=== PATIENT | female | born 1970 | race Caucasian/White ===

== ENCOUNTER 2017-06-16 17:41 | Emergency (ER) | payer OTHER, BC ==
[~2017-06-16] VITALS: Ht 167.6 cm; Wt 136.5 kg
[~2017-06-16 17:41] MED LIST: CYCL5TAB PO; HYDR-2758 PO
--- NOTE | 2017-06-16 17:52 | PHYS DOC ---
Past Medical History Past Medical History: Diabetes-Type II Additional Past Medical Histor: LONG QT SYNDROME Past Surgical History: Cholecystectomy, , Hysterectomy Additional Past Surgical Histo: D&C'S, PACEMAKER WITH DEFIB Alcohol Use: Rarely Drug Use: None Adult General Chief Complaint Chief Complaint: OTHER COMPLAINTS HPI HPI Patient is a 47 year old female who presents with substernal pressure that radiates her back. She states last night right before bed she took doxycycline for sinus infection minute 3 AM she woke up with this pain in her epigastric area that radiates her back. She states is only hurts when she swallows. She states it hurts so bad that she could hardly eat today. She states a glass water makes it hurt. She states she's also has a history of hypertension, prediabetes and prolonged QT syndrome with an ICD. Review of Systems Review of Systems Constitutional: Denies fever or chills [] Eyes: Denies change in visual acuity, redness, or eye pain [] HENT: Denies nasal congestion or sore throat [] Respiratory: Denies cough or shortness of breath [] Cardiovascular: No additional information not addressed in HPI [] GI: Denies abdominal pain, nausea, vomiting, bloody stools or diarrhea [] : Denies dysuria or hematuria [] Musculoskeletal: Denies back pain or joint pain [] Integument: Denies rash or skin lesions [] Neurologic: Denies headache, focal weakness or sensory changes [] Endocrine: Denies polyuria or polydipsia [] All other systems were reviewed and found to be within normal limits, except as documented in this note. Current Medications Current Medications Current Medications Medications (Trade) Dose Ordered Sig/Hawa Start Time Stop Time Status Last Admin Dose Admin Famotidine (Pepcid Vial) 20 mg 1X ONCE 06/16/17 18:15 06/16/17 18:16 DC 06/16/17 18:18 20 MG Morphine Sulfate 4 mg PRN Q15MIN PRN 06/16/17 19:30 06/17/17 19:29 06/16/17 19:36 4 MG Multi-Ingredient Mouthwash/Gargle (Gi Cocktail Single Dose) 15 ml 1X ONCE 06/16/17 18:15 06/16/17 18:16 DC 06/16/17 18:18 15 ML Ondansetron HCl (Zofran) 4 mg 1X ONCE 06/16/17 19:30 06/16/17 19:31 DC 06/16/17 19:35 4 MG Sucralfate (Carafate) 1 gm ONCE ONCE 06/16/17 20:15 06/16/17 20:16 DC 06/16/17 20:07 1 GM Allergies Allergies Allergies Coded Allergies Type Severity Reaction Last Updated Verified Penicillins Allergy Unknown 06/20/16 Yes Physical Exam Physical Exam Constitutional: Well developed, well nourished, no acute distress, non-toxic appearance. [] HENT: Normocephalic, atraumatic, bilateral external ears normal, oropharynx moist, no oral exudates, nose normal. [] Eyes: PERRLA, EOMI, conjunctiva normal, no discharge. [] Neck: Normal range of motion, no tenderness, supple, no stridor. [] Cardiovascular:Heart rate regular rhythm, no murmur [] Lungs & Thorax: Bilateral breath sounds clear to auscultation [] Abdomen: Bowel sounds normal, soft, no tenderness, no masses, no pulsatile masses. [] Skin: Warm, dry, no erythema, no rash. [] Back: No tenderness, no CVA tenderness. [] Extremities: No tenderness, no cyanosis, no clubbing, ROM intact, no edema. [] Neurologic: Alert and oriented X 3, normal motor function, normal sensory function, no focal deficits noted. [] Psychologic: Affect normal, judgement normal, mood normal. [] Current Patient Data Vital Signs Vital Signs Date Time Temp Pulse Resp B/P (MAP) Pulse Ox O2 Delivery O2 Flow Rate FiO2 06/16/17 22:56 70 14 155/90 (111) 98 Room Air 06/16/17 17:45 98.1 98.1 Lab Values Laboratory Tests Test 06/16/17 18:00 06/16/17 18:20 06/16/17 20:20 06/16/17 21:50 Troponin I Quantitative < 0.017 ng/mL (0.000-0.055) < 0.017 ng/mL (0.000-0.055) White Blood Count 8.4 x10^3/uL (4.0-11.0) Red Blood Count 4.82 x10^6/uL (3.50-5.40) Hemoglobin 14.3 g/dL (12.0-15.5) Hematocrit 42.8 % (36.0-47.0) Mean Corpuscular Volume 89 fL (79-100) Mean Corpuscular Hemoglobin 30 pg (25-35) Mean Corpuscular Hemoglobin Concent 33 g/dL (31-37) Red Cell Distribution Width 13.0 % (11.5-14.5) Platelet Count 218 x10^3/uL (140-400) Neutrophils (%) (Auto) 57 % (31-73) Lymphocytes (%) (Auto) 33 % (24-48) Monocytes (%) (Auto) 7 % (0-9) Eosinophils (%) (Auto) 2 % (0-3) Basophils (%) (Auto) 1 % (0-3) Neutrophils # (Auto) 4.8 x10^3uL (1.8-7.7) Lymphocytes # (Auto) 2.8 x10^3/uL (1.0-4.8) Monocytes # (Auto) 0.6 x10^3/uL (0.0-1.1) Eosinophils # (Auto) 0.1 x10^3/uL (0.0-0.7) Basophils # (Auto) 0.0 x10^3/uL (0.0-0.2) Sodium Level 141 mmol/L (136-145) Potassium Level 3.7 mmol/L (3.5-5.1) Chloride Level 103 mmol/L (98-107) Carbon Dioxide Level 31 mmol/L (21-32) Anion Gap 7 (6-14) Blood Urea Nitrogen 11 mg/dL (7-20) Creatinine 0.7 mg/dL (0.6-1.0) Estimated GFR (Cockcroft-Gault) 90.5 Glucose Level 136 mg/dL (70-99) H Calcium Level 8.8 mg/dL (8.5-10.1) Total Bilirubin 0.3 mg/dL (0.2-1.0) Direct Bilirubin 0.1 mg/dL (0.0-0.2) Aspartate Amino Transferase (AST) 20 U/L (15-37) Alanine Aminotransferase (ALT) 29 U/L (14-59) Alkaline Phosphatase 107 U/L (46-116) Creatine Kinase 35 U/L (26-192) 42 U/L (26-192) Creatine Kinase MB (Mass) ng/mL (0.0-3.6) < 0.5 ng/mL (0.0-3.6) Creatine Kinase MB Relative Index % (0-4) % (0-4) Total Protein 7.4 g/dL (6.4-8.2) Albumin 3.1 g/dL (3.4-5.0) L Lipase 133 U/L (73-393) Urine Collection Type Unknown Urine Color Yellow Urine Clarity Clear Urine pH 6.0 Urine Specific [place] 1.020 Urine Protein Negative mg/dL (NEG-TRACE) Urine Glucose (UA) Negative mg/dL (NEG) Urine Ketones (Stick) Negative mg/dL (NEG) Urine Blood Negative (NEG) Urine Nitrite Negative (NEG) Urine Bilirubin Negative (NEG) Urine Urobilinogen Dipstick 1.0 mg/dL (0.2 mg/dL) Urine Leukocyte Esterase Negative (NEG) Urine RBC 3-5 /HPF (0-2) Urine WBC Occ /HPF (0-4) Urine Squamous Epithelial Cells Few /LPF Urine Bacteria Moderate /HPF (0-FEW) Urine Mucus Mod /LPF Urine Test Negative (NEG) Laboratory Tests 06/16/17 18:20 Laboratory Tests 06/16/17 18:20 EKG EKG EKG shows sinus rhythm with rate 70 bpm without any concerning ST elevations or T-wave inversions, normal axis, QTC 504 ms, as interpreted by me. Radiology/Procedures Radiology/Procedures [] Impressions: Pill esophagitis Course & Med Decision Making Course & Med Decision Making Pertinent Labs and Imaging studies reviewed. (See chart for details) Based on her symptoms and history she likely has bills esophagitis. Spoke with Dr. Izaguirre with GI who recommends sulfa Carafate prior to each meal and narcotic pain meds. You can call his office on Sunday and schedule follow-up point. He states he usually takes about 3-4 days for these resolved. You will need to stop doxycycline. You are being switched to Bactrim. She had an allergic reaction to cephalosporin. She has prolonged QTC with an ICD therefore the quinolones or not an option. Her symptoms for her sinusitis have actually improved. This point she'll just do supportive care for her sinusitis. Return precautions given for worsening pain on swallowing, uncontrolled nausea vomiting or other concerns. 2 sets troponin was negative. EKG is non- concerning. She's being discharged with return precautions. Dragon Disclaimer Dragon Disclaimer This electronic medical record was generated, in whole or in part, using a voice recognition dictation system. Departure Departure Impression: Primary Impression: Pill esophagitis Disposition: 01 HOME, SELF-CARE Condition: STABLE Referrals: RYLAND HAMMER (PCP) Patient Instructions: Esophagitis Additional Instructions: You likely have pill esophagitis that's due from your doxycycline. You will need to stop taking doxycycline. This is likely causing irritation of your esophagus. You are being switch to Bactrium DS for you sinus infection. You can use [place] which is a narcotic pain medicine to help with discomfort and use sulfa Carafate to help coat and sooth the ulcer. You should start feeling better in the next 3-4 days. You can follow-up with the GI doctor Dr. Vincent. Please call his office and schedule follow-up. If your pain gets severe, you have uncontrolled nausea vomiting, or other concerns please return back to emergency department. Please discuss these prescriptions with her pharmacist to make sure that he had no interactions or affect your QTC intervals. Scripts Sulfamethoxazole/Trimethoprim (BACTRIM 400-80 MG TABLET) 1 Each Tablet 1 TAB PO BID, #14 TAB Prov: BASILIO ALCANTARA MD 06/16/17 Hydrocodone/Apap 5-325 (NORCO 5-325 TABLET) 1 Each Tablet 1-2 TAB PO PRN Q6HRS Y for PAIN for 20 Days, TAB 0 Refills Prov: BASILIO ALCANTARA MD 06/16/17 Sucralfate (CARAFATE) 1 Gm/10 Ml Oral.susp 10 ML PO TIDAC, #120 ML 1 Refill Prov: BASILIO ALCANTARA MD 06/16/17 BASILIO ALCANTARA MD Jun 16, 2017 17:52
[2017-06-16] MEDS ORDERED: FAMOTIDINE 20 MG/2 ML VIAL IVP ONE (18:15)
[2017-06-16] MEDS ORDERED: LIDO:MAALOX:DONNATAL 1:1:1 15 ML SINGLE DOSE SWSW ONE (18:15)
[2017-06-16 18:31] LABS: BASO % 1 % (0-3); EOS % 2 % (0-3); HEMATOCRIT 42.8 % (36.0-47.0); HEMOGLOBIN 14.3 g/dL (12.0-15.5); LYMPH # 2.8 x10^3/uL (1.0-4.8); LYMPH % 33 % (24-48); MEAN CORPUSCULAR HEMOGLOBIN 30 pg (25-35); MEAN CORPUSCULAR HGB CONC 33 g/dL (31-37); MEAN CORPUSCULAR VOLUME 89 fL (79-100); MONO % 7 % (0-9); NEUT % 57 % (31-73); PLATELET COUNT 218 x10^3/uL (140-400); RED BLOOD COUNT 4.82 x10^6/uL (3.50-5.40); WHITE BLOOD COUNT 8.4 x10^3/uL (4.0-11.0)
[2017-06-16 18:39] LABS: CALCIUM 8.8 mg/dL (8.5-10.1); CREATININE 0.7 mg/dL (0.6-1.0); GFR 90.5; POTASSIUM 3.7 mmol/L (3.5-5.1)
[2017-06-16 18:45] LABS: ALBUMIN 3.1 g/dL (3.4-5.0); DIRECT BILIRUBIN 0.1 mg/dL (0.0-0.2); TOTAL BILIRUBIN 0.3 mg/dL (0.2-1.0); TOTAL PROTEIN 7.4 g/dL (6.4-8.2)
[2017-06-16 18:55] LABS: CREATINE KINASE 35 U/L (26-192)
[2017-06-16] MEDS ORDERED: MORPHINE SULFATE 4 MG/ML DISP.SYRIN. IV/SQ PRN (19:30)
[2017-06-16] MEDS ORDERED: ONDANSETRON PF 4 MG/2 ML VIAL. IV ONE (19:30)
--- NOTE | 2017-06-16 19:33 | EKG ---
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
[2017-06-16] MEDS ORDERED: SUCRALFATE 1 GM TABLET. PO ONE (20:00)
[2017-06-16] MEDS ORDERED: SUCRALFATE 1 GM/10 ML ORAL.SUSP. PO ONE (20:15)
[2017-06-16] MEDS ORDERED: SUCRALFATE 1 GM/10 ML ORAL.SUSP. PEG ONE (20:15)
[2017-06-16 20:28] LABS: BILIRUBIN,URINE NEGATIVE (NEG); GLUCOSE,URINE NEGATIVE (NEG); NITRITE,URINE NEGATIVE (NEG); PROTEIN,URINE NEGATIVE (NEG-TRACE)
[2017-06-16 20:30] LABS: NEG OBC UR NEG; POS OBC UR POS
[2017-06-16 20:35] LABS: BACTERIA,URINE MODERATE /HPF (0-FEW); SQUAMOUS EPITHELIAL CELL,UR FEW /LPF; WBC,URINE OCC /HPF (0-4)
[2017-06-16 22:43] LABS: CREATINE KINASE 42 U/L (26-192)
[2017-06-16 22:44] LABS: CKMB MASS < 0.5 ng/mL (0.0-3.6)
[2017-06-16] MEDS ORDERED: SUCR1ORA5 PO (23:04)
[2017-06-16] MEDS ORDERED: HYDR-971 PO (23:04)
[2017-06-16] MEDS ORDERED: SULF1TAB23 PO (23:20)
[2017-06-16 23:34] VITALS: BP 161/93
--- NOTE | 2017-06-17 08:21 | RAD ---
Single view chest 06/16/2017 Clinical indication: Chest pain. Comparison: Single view chest 01/13/2004. Findings: There is a dual-lead right chest wall cardiac connection device. Cardiac and mediastinal silhouettes are unremarkable. No pleural effusion, pneumothorax or focal consolidation. Impression: No acute osseous abnormality.
== END 2017-06-16 23:34 | disposition home or self-care (01) ==
LOC: ER 17:41
DX: K20.8 Other esophagitis (principal); E11.9 Type 2 diabetes mellitus without complications; I10 Essential (primary) hypertension; Z95.0 Presence of cardiac pacemaker; Z95.810 Presence of automatic (implantable) cardiac defibrillator; Z90.49 Acquired absence of other specified parts of digestive tract; Z90.710 Acquired absence of both cervix and uterus; Z88.0 Allergy status to penicillin
CPT/HCPCS: 36415; 71010; 80048; 80076; 81001; 81025; 82553; 83690; 84484; 85025; 87086; 93005; 96374; 96375; 99285; J2270; J2405; S0028

== ENCOUNTER 2017-08-19 06:57 | Emergency (ER) | payer OTHER, BC ==
[2017-08-19] MEDS: IPRATRPIUM/ALBUTEROL 0.5/2.5MG 3 ML NEBU. NEB ×2 (07:38)
[2017-08-19 07:40] LABS: INFLUENZA A PATIENT NEGATIVE (NEGATIVE); INFLUENZA B PATIENT NEGATIVE (NEGATIVE); OBC FLU VALID
== END 2017-08-19 08:42 | disposition home or self-care (01) ==
LOC: ER 06:57
DX: R05 Cough (principal); Z88.0 Allergy status to penicillin; E11.9 Type 2 diabetes mellitus without complications; I10 Essential (primary) hypertension; Z95.0 Presence of cardiac pacemaker; Z95.810 Presence of automatic (implantable) cardiac defibrillator
CPT/HCPCS: 71046; 87804; 87804-59; 94640; 94760; 99285-25; J7620

== ENCOUNTER 2018-12-03 19:43 | Inpatient (IN) | payer OTHER, BC ==
[~2018-12-03] VITALS: Ht 167.6 cm; Wt 143.9 kg
[2018-12-03 11:15] VITALS: BP 151/80
[2018-12-03 11:30] VITALS: BP 144/74
[2018-12-03 11:45] VITALS: BP 135/81
[2018-12-03 11:59] VITALS: BP 153/70
[~2018-12-03 19:43] MED LIST changes: +ALBU2.5V8 IH; +AZIT250T6 PO; -HYDR-2758 PO; +HYDR-2761 PO; +HYDR-3164 PO; +SUCR1ORA5 PO; +SULF1TAB23 PO; +SULF1TAB24 PO
[2018-12-03 19:58] LABS: BILIRUBIN,URINE NEGATIVE (NEG); CLARITY,URINE CLEAR; COLOR,URINE YELLOW; NITRITE,URINE NEGATIVE (NEG); PROTEIN,URINE NEGATIVE (NEG-TRACE)
[2018-12-03] MEDS ORDERED: IV NORMAL SALINE 1000ML BAG 1,000 ML IV ONE ×2 (20:00→21:30)
[2018-12-03] MEDS ORDERED: ONDANSETRON PF 4 MG/2 ML VIAL. IV ONE (20:00)
[2018-12-03 20:11] LABS: BASO # 0.1 x10^3/uL (0.0-0.2); BASO % 1 % (0-3); EOS # 0.1 x10^3/uL (0.0-0.7); EOS % 1 % (0-3); HEMOGLOBIN 14.2 g/dL (12.0-15.5); LYMPH # 1.8 x10^3/uL (1.0-4.8); LYMPH % 17 % (24-48); MEAN CORPUSCULAR HEMOGLOBIN 30 pg (25-35); MEAN CORPUSCULAR HGB CONC 34 g/dL (31-37); MEAN CORPUSCULAR VOLUME 89 fL (79-100); MONO # 0.3 x10^3/uL (0.0-1.1); MONO % 3 % (0-9); NEUT # 8.9 x10^3uL (1.8-7.7); NEUT % 80 % (31-73); PLATELET COUNT 200 x10^3/uL (140-400); RED BLOOD COUNT 4.73 x10^6/uL (3.50-5.40); RED CELL DISTRIBUTION WIDTH 13.2 % (11.5-14.5); WHITE BLOOD COUNT 11.2 x10^3/uL (4.0-11.0)
[2018-12-03 20:20] LABS: CALCIUM 8.7 mg/dL (8.5-10.1); CREATININE 0.6 mg/dL (0.6-1.0); GFR 107.6; POTASSIUM 4.2 mmol/L (3.5-5.1)
[2018-12-03 20:27] LABS: BACTERIA,URINE FEW /HPF (0-FEW); RBC,URINE 0 /HPF (0-2); SQUAMOUS EPITHELIAL CELL,UR FEW /LPF
--- NOTE | 2018-12-03 20:33 | RAD ---
EXAM: Chest, single view. HISTORY: Shortness of air. Cough. COMPARISON: 08/19/2017 FINDINGS: A frontal view of the chest obtained. There is right lower lobe predominant diffuse increased interstitial opacity. There is no consolidation, pleural effusion or pneumothorax. The heart is normal in size. There is a cardiac pacemaker defibrillator in expected position. IMPRESSION: Diffuse right lower lobe predominant interstitial infiltrate. There is no consolidation. Electronically signed by: Reena Christine MD (12/03/2018 8:30 PM) [facility]
[2018-12-03 20:37] LABS: ALBUMIN 3.5 g/dL (3.4-5.0); ALBUMIN/GLOBULIN RATIO 0.8 (1.0-1.7); TOTAL BILIRUBIN 0.4 mg/dL (0.2-1.0); TOTAL PROTEIN 7.7 g/dL (6.4-8.2)
[2018-12-03] MEDS ORDERED: AMIODARONE 150 MG/3 ML VIAL ONE (21:16)
[2018-12-03] MEDS ORDERED: AMIODARONE 150 MG/3 ML VIAL IVP ONE (21:30)
[2018-12-03] MEDS ORDERED: MAGNESIUM SULFATE 1GM 100 ML IV ONE (21:30)
--- NOTE | 2018-12-03 22:42 | PHYS DOC ---
Past Medical History Past Medical History: Diabetes-Type II, GERD, Hypertension Additional Past Medical Histor: LONG QT SYNDROME Past Surgical History: Cholecystectomy, , Hysterectomy, Pacemaker Additional Past Surgical Histo: D&C'S, AICD Alcohol Use: Rarely Drug Use: None Adult General Chief Complaint Chief Complaint: NAUSEA/VOMITING/DIARRHA HPI HPI 48 y/o female presents to ER via POV with her husb. for c/o N/V, nonprod. cough, sinus drainage, and generalized fatigue. Pt's husb. Mack reports pt has been sick for past 3 days however today she has had increased fatigue w/sxs worse. Patient denies chest pain, palpitations, or shortness of air. She is denying any pain. During initial exam patient is anxious and restless on the cart. Per patient has prolonged QT syndrome and has implanted defibrillator. Patient states she thought she heard her defibrillator charging last night but denies shock. Pt's son has had respiratory illness and currently on antibiotics. Pt has hx of hyster. She denies smoking hx or alcohol/illicit drug use. Review of Systems Review of Systems Constitutional: Denies fever or chills. Reports generalized fatigue Eyes: Denies change in visual acuity, redness, or eye pain [] HENT: Denies nasal congestion or sore throat [] Respiratory: Denies cough or shortness of breath [] Cardiovascular: Denies CP/palpitations GI: Denies abdominal pain, bloody stools or diarrhea. Reports intermittent nausea/vomiting- pt's husb. reports pt has been having N/V with sinus drainage and has past hx of sensitivity with secretions which cause her to become nauseated : Denies dysuria or hematuria [] Musculoskeletal: Denies back/neck pain or joint pain [] Integument: Denies rash or skin lesions [] Neurologic: Denies headache, focal weakness or sensory changes [] Endocrine: Denies polyuria or polydipsia [] All other systems were reviewed and found to be within normal limits, except as documented in this note. Current Medications Current Medications Current Medications Medications (Trade) Dose Ordered Sig/Hawa Start Time Stop Time Status Last Admin Dose Admin Amiodarone HCl (Cordarone) 150 mg 1X ONCE 12/03/18 21:30 12/03/18 21:34 DC 12/03/18 21:19 150 MG Lorazepam (Ativan Inj) 0.5 mg 1X ONCE 12/03/18 20:15 12/03/18 21:17 DC Magnesium Sulfate/ Dextrose 100 ml @ 100 mls/hr 1X ONCE 12/03/18 21:30 12/03/18 22:29 DC 12/03/18 21:30 100 MLS/HR Ondansetron HCl (Zofran) 4 mg 1X ONCE 12/03/18 20:00 12/03/18 21:17 DC Sodium Chloride 1,000 ml @ 1,000 mls/hr 1X ONCE 12/03/18 21:30 12/03/18 22:29 DC 12/03/18 21:26 1,000 MLS/HR Allergies Allergies Allergies Coded Allergies Type Severity Reaction Last Updated Verified Penicillins Allergy Unknown 06/20/16 Yes Physical Exam Physical Exam Constitutional: Well developed, well nourished, fatigued appearance, non-toxic appearance. [] HENT: Normocephalic, atraumatic, bilateral ears normal, mucous membranes pink/dry, no oral exudates, nose normal. [] Eyes: Pupils equal, no nystagmus, conjunctiva normal, no discharge. [] Neck: Normal range of motion, no tenderness, supple, no stridor. [] Cardiovascular: Heart rate regular rhythm, no murmur [] Lungs & Thorax: Bilateral breath sounds clear to auscultation- diminished in bases. Pt anxious on initial exam with vomiting/hyperventilating- redirected on breathing Abdomen: Bowel sounds normal, soft/obese, no tenderness/distention/rigidity, no masses, no pulsatile masses. [] Skin: Warm, dry, no erythema, no rash. [] Back: No tenderness, no CVA tenderness. [] Extremities: No tenderness, no cyanosis, no clubbing, ROM intact, no edema. [] Neurologic: Alert and oriented X 3, normal motor function, normal sensory function, no focal deficits noted. [] Psychologic: Affect normal, judgement normal, mood anxious/restless Current Patient Data Vital Signs Vital Signs Date Time Temp Pulse Resp B/P (MAP) Pulse Ox O2 Delivery O2 Flow Rate FiO2 12/03/18 21:29 70 24 151/81 (104) 97 Nasal Cannula 5.0 12/03/18 19:45 99.8 99.8 Lab Values Laboratory Tests Test 12/03/18 19:52 12/03/18 20:00 Urine Collection Type Unknown Urine Color Yellow Urine Clarity Clear Urine pH 5.0 Urine Specific [place] 1.020 Urine Protein Negative mg/dL (NEG-TRACE) Urine Glucose (UA) Negative mg/dL (NEG) Urine Ketones (Stick) Negative mg/dL (NEG) Urine Blood Negative (NEG) Urine Nitrite Negative (NEG) Urine Bilirubin Negative (NEG) Urine Urobilinogen Dipstick 1.0 mg/dL (0.2 mg/dL) Urine Leukocyte Esterase Negative (NEG) Urine RBC 0 /HPF (0-2) Urine WBC 1-4 /HPF (0-4) Urine Squamous Epithelial Cells Few /LPF Urine Bacteria Few /HPF (0-FEW) Urine Mucus Mod /LPF White Blood Count 11.2 x10^3/uL (4.0-11.0) H Red Blood Count 4.73 x10^6/uL (3.50-5.40) Hemoglobin 14.2 g/dL (12.0-15.5) Hematocrit 42.0 % (36.0-47.0) Mean Corpuscular Volume 89 fL (79-100) Mean Corpuscular Hemoglobin 30 pg (25-35) Mean Corpuscular Hemoglobin Concent 34 g/dL (31-37) Red Cell Distribution Width 13.2 % (11.5-14.5) Platelet Count 200 x10^3/uL (140-400) Neutrophils (%) (Auto) 80 % (31-73) H Lymphocytes (%) (Auto) 17 % (24-48) L Monocytes (%) (Auto) 3 % (0-9) Eosinophils (%) (Auto) 1 % (0-3) Basophils (%) (Auto) 1 % (0-3) Neutrophils # (Auto) 8.9 x10^3uL (1.8-7.7) H Lymphocytes # (Auto) 1.8 x10^3/uL (1.0-4.8) Monocytes # (Auto) 0.3 x10^3/uL (0.0-1.1) Eosinophils # (Auto) 0.1 x10^3/uL (0.0-0.7) Basophils # (Auto) 0.1 x10^3/uL (0.0-0.2) Sodium Level 142 mmol/L (136-145) Potassium Level 4.2 mmol/L (3.5-5.1) Chloride Level 103 mmol/L (98-107) Carbon Dioxide Level 29 mmol/L (21-32) Anion Gap 10 (6-14) Blood Urea Nitrogen 14 mg/dL (7-20) Creatinine 0.6 mg/dL (0.6-1.0) Estimated GFR (Cockcroft-Gault) 107.6 BUN/Creatinine Ratio 23 (6-20) H Glucose Level 121 mg/dL (70-99) H Lactic Acid Level 0.8 mmol/L (0.4-2.0) Calcium Level 8.7 mg/dL (8.5-10.1) Magnesium Level 1.6 mg/dL (1.8-2.4) L Total Bilirubin 0.4 mg/dL (0.2-1.0) Aspartate Amino Transferase (AST) 23 U/L (15-37) Alanine Aminotransferase (ALT) 32 U/L (14-59) Alkaline Phosphatase 97 U/L (46-116) Troponin I Quantitative < 0.017 ng/mL (0.000-0.055) Total Protein 7.7 g/dL (6.4-8.2) Albumin 3.5 g/dL (3.4-5.0) Albumin/Globulin Ratio 0.8 (1.0-1.7) L Lipase 111 U/L (73-393) Laboratory Tests 12/03/18 20:00 Laboratory Tests 12/03/18 20:00 EKG EKG EKG obtained 12/03/18 at [address] Thomas Sinus rhythm Prolonged QT Rate 70 NO STEMI Repeat EKG obtained 12/03/18 at [address] Thomas Sinus rhythm Prolonged QT Rate [address] Thomas compared pt's EKG to 06/16/17 EKG in pt's records- similar reading with SR prolonged QT rate 70 Radiology/Procedures Radiology/Procedures PROCEDURE: CHEST AP ONLY EXAM: Chest, single view. HISTORY: Shortness of air. Cough. COMPARISON: 08/19/2017 FINDINGS: A frontal view of the chest obtained. There is right lower lobe predominant diffuse increased interstitial opacity. There is no consolidation, pleural effusion or pneumothorax. The heart is normal in size. There is a cardiac pacemaker defibrillator in expected position. IMPRESSION: Diffuse right lower lobe predominant interstitial infiltrate. There is no consolidation. Electronically signed by: Reena Dewitt MD (12/03/2018 8:30 PM) [facility] DICTATED and SIGNED BY: REENA DEWITT MD DATE: 12/03/182029 Course & Med Decision Making Course & Med Decision Making Pertinent Labs and Imaging studies reviewed. (See chart for details) 2105: Pt's environmental monitoring technician alarmed- on eval found pt had episode of sustained polymorphic Vtach- upon entering room pt reported she had felt her heart go into abnormal- on monitor she was back into SR. She is denying CP- she has pale facial tone but is having no active vomiting and is less anxious than at time of arrival. Pt denies feeling defibrillator shock. Crash cart brought to bedside. Repeat EKG being obtained- no acute change from initial EKG. Dr. Thomas was immediately notified of episodes of Vtach- discussed pt's case/test results. 2nd IV is being established. Order for Amiodarone 150mg bolus placed. Additional 1L NS fld bolus being started. 1gm IV Mg ordered- labs with Mg at 1.6. Dr. Thomas contacted Dr. Valadez, cardiology and discussed pt's case/Vtach episodes. Pt's defibrillator was interrogated and she did have 3 episodes of V. tach r eported around 2105. Interrogator reported patient did receive shock with initial run of V. tach but not with other episodes. Interrogator reports patient had no episodes last night on monitor. 2132: Spoke with Dr. Calderon, hospitalist and discussed pt's case/ICU admit and episodes of Vtach. Pt will be admitted to hospitalist services for further care w/cardiology consult. 2249: Pt had few more episodes of Vtach with episodes shorter on monitor. IStat troponin was obtained prior which was neg. Pt reports she is feeling better- denies any CP/SOA. Pt's facial skin tone more pink. She is in no d istress/nontoxic in appearance. Discussed ICU admit further with pt and her husb. Jose Disclaimer Dragon Disclaimer This electronic medical record was generated, in whole or in part, using a voice recognition dictation system. Departure Departure Impression: Primary Impression: V tach Additional Impression: Nausea & vomiting Disposition: ADMITTED INPATIENT (Dr. Calderon, hospitalist) Condition: CRITICAL Referrals: RYLAND HAMMER (PCP) Problem Qualifiers LUBNA SAL APRN Dec 03, 2018 22:42
[2018-12-04] VITALS (12 sets, daily range): BP systolic 109–157; BP diastolic 65–94
[2018-12-04] MEDS ORDERED: ACETAMINOPHEN 325 MG TABLET. PO PRN ×2 (00:15)
[2018-12-04] MEDS ORDERED: cefTRIAXone IV Push 1 GM VIAL. IVP ONE ×2 (00:45→01:30)
[2018-12-04 05:52] LABS: BASO % 0 % (0-3); EOS % 0 % (0-3); HEMATOCRIT 38.6 % (36.0-47.0); LYMPH # 1.4 x10^3/uL (1.0-4.8); LYMPH % 10 % (24-48); MEAN CORPUSCULAR HEMOGLOBIN 30 pg (25-35); MEAN CORPUSCULAR HGB CONC 34 g/dL (31-37); MEAN CORPUSCULAR VOLUME 89 fL (79-100); MONO # 0.8 x10^3/uL (0.0-1.1); MONO % 6 % (0-9); NEUT % 84 % (31-73); PLATELET COUNT 164 x10^3/uL (140-400); RED BLOOD COUNT 4.35 x10^6/uL (3.50-5.40); RED CELL DISTRIBUTION WIDTH 12.7 % (11.5-14.5); WHITE BLOOD COUNT 13.2 x10^3/uL (4.0-11.0)
[2018-12-04 06:23] LABS: ALBUMIN 2.9 g/dL (3.4-5.0); ALBUMIN/GLOBULIN RATIO 0.9 (1.0-1.7); CALCIUM 8.3 mg/dL (8.5-10.1); CREATININE 0.6 mg/dL (0.6-1.0); GFR 107.6; POTASSIUM 3.8 mmol/L (3.5-5.1); TOTAL BILIRUBIN 0.6 mg/dL (0.2-1.0)
--- NOTE | 2018-12-04 06:52 | EKG ---
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
--- NOTE | 2018-12-04 08:50 | PDOC1 ---
History and Physical Date of Admission Date of Admission DATE: 12/04/18 TIME: 08:45 Identification/Chief Complaint Chief Complaint shortness of breath and cough Source Source: Chart review, Patient History of Present Illness History of Present Illness she came to the ER last night for cough, dyspnea, weeaknss. one day of nausea. She has new cough with myalgia and weakess. 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 Stanford Past Medical History Cardiovascular: HTN, Other (long QT ) Pulmonary: Bronchitis GI: No pertinent hx Heme/Onc: No pertinent hx Musculoskeletal: low back pain Rheumatologic: No pertinent hx Infectious disease: No pertinent hx Endocrine: Other (obesity) Dermatology: No pertinent hx Family History Family History: Other (freq pneumonias) Family History: Parent Social History Smoke: No ALCOHOL: rare Drugs: None Current Medications Current Medications Current Medications Ondansetron HCl (Zofran) 4 mg 1X ONCE IV ; Start 12/03/18 at 20:00; Stop 12/03/18 at 21:17; Status DC Sodium Chloride 1,000 ml @ 1,000 mls/hr 1X ONCE IV Last administered on 12/03/18at 20:00; Start 12/03/18 at 20:00; Stop 12/03/18 at 20:59; Status DC Lorazepam (Ativan Inj) 0.5 mg 1X ONCE IV ; Start 12/03/18 at 20:15; Stop 12/03/18 at 21:17; Status DC Amiodarone HCl (Cordarone) 150 mg STK-MED ONCE .ROUTE ; Start 12/03/18 at 21:16; Stop 12/03/18 at 21:17; Status DC Magnesium Sulfate/ Dextrose 100 ml @ 100 mls/hr 1X ONCE IV Last administered on 12/03/18at 21:30; Start 12/03/18 at 21:30; Stop 12/03/18 at 22:29; Status DC Sodium Chloride 1,000 ml @ 1,000 mls/hr 1X ONCE IV Last administered on 12/03/18at 21:26; Start 12/03/18 at 21:30; Stop 12/03/18 at 22:29; Status DC Amiodarone HCl (Cordarone) 150 mg 1X ONCE IVP Last administered on 12/03/18at 21:19; Start 12/03/18 at 21:30; Stop 12/03/18 at 21:34; Status DC Acetaminophen (Tylenol) 650 mg PRN Q6HRS PRN PO FEVER Last administered on 12/04/18at 00:34; Start 12/04/18 at 00:15; Stop 12/04/18 at 08:07; Status DC Ceftriaxone Sodium (Rocephin) 1 gm Q24H IVP ; Start 12/04/18 at 22:00 Acetaminophen (Tylenol) 650 mg PRN Q6HRS PRN PO FEVER > 100.5'F Last administered on 12/04/18at 08:20; Start 12/04/18 at 00:15 Ceftriaxone Sodium (Rocephin) 1 gm ONCE ONCE IVP Last administered on 12/04/18at 01:17; Start 12/04/18 at 00:45; Stop 12/04/18 at 00:46; Status DC Ceftriaxone Sodium (Rocephin) 1 gm ONCE ONCE IVP Last administered on 12/04/18at 01:24; Start 12/04/18 at 01:30; Stop 12/04/18 at 01:31; Status DC Lactobacillus Rhamnosus (Culturelle) 1 cap BID PO ; Start 12/04/18 at 09:00 Potassium Chloride (Klor-Con) 20 meq 1X ONCE PO ; Start 12/04/18 at 09:00; Stop 12/04/18 at 09:01 Magnesium Sulfate/ Dextrose 100 ml @ 25 mls/hr 1X ONCE IV ; Start 12/04/18 at 09:00; Stop 12/04/18 at 12:59 Active Scripts Active Bactrim Ds Tablet (Sulfamethoxazole/Trimethoprim) 1 Each Tablet 1 Tab PO BID Proventil Hfa Inhaler (Albuterol Sulfate) 6.7 Gm Hfa.aer.ad 1-2 Puff IH PRN Q4HRS PRN Bactrim 400-80 Mg Tablet (Sulfamethoxazole/Trimethoprim) 1 Each Tablet 1 Tab PO BID [place] 5-325 Tablet (Acetaminophen/Hydrocodone Bitart) 1 Each Tablet 1-2 Tab PO PRN Q6HRS PRN 20 Days Carafate (Sucralfate) 1 Gm/10 Ml Oral.susp 10 Ml PO TIDAC Hydrocodone-Apap 5-325 (Hydrocodone Bit/Acetaminophen) 1 Each Tablet 1-2 Tab PO PRN Q4-6HRS PRN Cyclobenzaprine Hcl 5 Mg Tablet 1 Tab PO TID PRN Allergies Allergies: Coded Allergies: Penicillins (Verified Allergy, Unknown, 06/20/16) ROS General: YES: Chills, Fatigue, Malaise PSYCHOLOGICAL ROS: No: Anxiety, Behavioral Disorder, Concentration difficultie, Decreased libido, Depression, Disorientation, Hallucinations, Hostility, Irritablity, Memory difficulties, Mood Swings, Obsessive thoughts, Physical abuse, Sexual abuse, Sleep disturbances, Suicidal ideation, Other Eyes: No Blurry vision, No Decreased vision, No Double vision, No Dry eyes, No Excessive tearing, No Eye Pain, No Itchy Eyes, No Loss of vision, No Photophobia, No Scotomata, No Uses contacts, No Uses glasses, No Other HEENT: YES: Heacaches; No: Visual Changes, Hearing change, Nasal congestion, Nasal discharge, Oral lesions, Sinus pain, Sore Throat, Epistaxis, Sneezing, Snoring, Tinnitus, Vertigo, Vocal changes, Other Respiratory: YES: Cough, Shortness of breath, SOB with excertion, Tachypnea, Wheezing; No: Hemoptysis, Orthopnea, Pleuritic Pain, Sputum Changes, Stridor, Other Cardiovascular: No Chest Pain, No Palpitations, No Orthopnea, No Paroxysmal Noc. Dyspnea, No Edema, No Lt Headedness, No Other Gastrointestinal: Yes Nausea; No Vomiting, No Abdominal Pain, No Diarrhea, No Constipation, No Melena, No Hematochezia, No Other Genitourinary: No Dysuria, No Frequency, No Incontinence, No Hematuria, No Retention, No Discharge, No Urgency, No Pain, No Flank Pain, No Other, No , No , No , No , No , No , No Musculoskeletal: Yes Joint Pain Neurological: No Behavorial Changes, No Bowel/Bladder ControlChng, No Confusion, No Dizziness, No Gait Disturbance, No Headaches, No Impaired Coord/balance, No Memory Loss, No Numbness/Tingling, No Seizures, No Speech Problems, No Tremors, No Visual Changes, No Weakness, No Other Skin: No Dry Skin, No Eczema, No Hair Changes, No Lumps, No Mole Changes, No Mottling, No Nail Changes, No Pruritus, No Rash, No Skin Lesion Changes, No Other, No Acne Physical Exam General: Alert, Oriented X3, Cooperative, mild distress HEENT: Atraumatic, PERRLA Lungs: Other (rales, lmited vol) Heart: S1S2, RRR Abdomen: Normal bowel sounds (very obese), Soft Extremities: No clubbing, Normal pulses Skin: No breakdown Neuro: Normal speech, Strength at 5/5 X4 ext, Normal tone, Cranial nerves 3-12 NL Psych/Mental Status: Mood NL Vitals Vitals Vital Signs Date Time Temp Pulse Resp B/P (MAP) Pulse Ox O2 Delivery O2 Flow Rate FiO2 12/04/18 07:50 Room Air 12/04/18 07:45 70 16 128/74 (92) 96 12/04/18 07:00 98.1 98.1 12/04/18 06:15 5.0 Labs Labs Laboratory Tests Test 12/03/18 19:52 12/03/18 20:00 12/03/18 22:03 12/04/18 02:35 Urine Collection Type Unknown Urine Color Yellow Urine Clarity Clear Urine pH 5.0 Urine Specific [place] 1.020 Urine Protein Negative mg/dL (NEG-TRACE) Urine Glucose (UA) Negative mg/dL (NEG) Urine Ketones (Stick) Negative mg/dL (NEG) Urine Blood Negative (NEG) Urine Nitrite Negative (NEG) Urine Bilirubin Negative (NEG) Urine Urobilinogen Dipstick 1.0 mg/dL (0.2 mg/dL) Urine Leukocyte Esterase Negative (NEG) Urine RBC 0 /HPF (0-2) Urine WBC 1-4 /HPF (0-4) Urine Squamous Epithelial Cells Few /LPF Urine Bacteria Few /HPF (0-FEW) Urine Mucus Mod /LPF White Blood Count 11.2 x10^3/uL (4.0-11.0) Red Blood Count 4.73 x10^6/uL (3.50-5.40) Hemoglobin 14.2 g/dL (12.0-15.5) Hematocrit 42.0 % (36.0-47.0) Mean Corpuscular Volume 89 fL (79-100) Mean Corpuscular Hemoglobin 30 pg (25-35) Mean Corpuscular Hemoglobin Concent 34 g/dL (31-37) Red Cell Distribution Width 13.2 % (11.5-14.5) Platelet Count 200 x10^3/uL (140-400) Neutrophils (%) (Auto) 80 % (31-73) Lymphocytes (%) (Auto) 17 % (24-48) Monocytes (%) (Auto) 3 % (0-9) Eosinophils (%) (Auto) 1 % (0-3) Basophils (%) (Auto) 1 % (0-3) Neutrophils # (Auto) 8.9 x10^3uL (1.8-7.7) Lymphocytes # (Auto) 1.8 x10^3/uL (1.0-4.8) Monocytes # (Auto) 0.3 x10^3/uL (0.0-1.1) Eosinophils # (Auto) 0.1 x10^3/uL (0.0-0.7) Basophils # (Auto) 0.1 x10^3/uL (0.0-0.2) Sodium Level 142 mmol/L (136-145) Potassium Level 4.2 mmol/L (3.5-5.1) Chloride Level 103 mmol/L (98-107) Carbon Dioxide Level 29 mmol/L (21-32) Anion Gap 10 (6-14) Blood Urea Nitrogen 14 mg/dL (7-20) Creatinine 0.6 mg/dL (0.6-1.0) Estimated GFR (Cockcroft-Gault) 107.6 BUN/Creatinine Ratio 23 (6-20) Glucose Level 121 mg/dL (70-99) Lactic Acid Level 0.8 mmol/L (0.4-2.0) Calcium Level 8.7 mg/dL (8.5-10.1) Magnesium Level 1.6 mg/dL (1.8-2.4) Total Bilirubin 0.4 mg/dL (0.2-1.0) Aspartate Amino Transf (AST/SGOT) 23 U/L (15-37) Alanine Aminotransferase (ALT/SGPT) 32 U/L (14-59) Alkaline Phosphatase 97 U/L (46-116) Troponin I Quantitative < 0.017 ng/mL (0.000-0.055) < 0.017 ng/mL (0.000-0.055) Total Protein 7.7 g/dL (6.4-8.2) Albumin 3.5 g/dL (3.4-5.0) Albumin/Globulin Ratio 0.8 (1.0-1.7) Lipase 111 U/L (73-393) Bedside Troponin I 0.00 ng/ml (<0.08) Test 12/04/18 05:20 White Blood Count 13.2 x10^3/uL (4.0-11.0) Red Blood Count 4.35 x10^6/uL (3.50-5.40) Hemoglobin 13.0 g/dL (12.0-15.5) Hematocrit 38.6 % (36.0-47.0) Mean Corpuscular Volume 89 fL (79-100) Mean Corpuscular Hemoglobin 30 pg (25-35) Mean Corpuscular Hemoglobin Concent 34 g/dL (31-37) Red Cell Distribution Width 12.7 % (11.5-14.5) Platelet Count 164 x10^3/uL (140-400) Neutrophils (%) (Auto) 84 % (31-73) Lymphocytes (%) (Auto) 10 % (24-48) Monocytes (%) (Auto) 6 % (0-9) Eosinophils (%) (Auto) 0 % (0-3) Basophils (%) (Auto) 0 % (0-3) Neutrophils # (Auto) 11.0 x10^3uL (1.8-7.7) Lymphocytes # (Auto) 1.4 x10^3/uL (1.0-4.8) Monocytes # (Auto) 0.8 x10^3/uL (0.0-1.1) Eosinophils # (Auto) 0.0 x10^3/uL (0.0-0.7) Basophils # (Auto) 0.0 x10^3/uL (0.0-0.2) Sodium Level 140 mmol/L (136-145) Potassium Level 3.8 mmol/L (3.5-5.1) Chloride Level 104 mmol/L (98-107) Carbon Dioxide Level 27 mmol/L (21-32) Anion Gap 9 (6-14) Blood Urea Nitrogen 10 mg/dL (7-20) Creatinine 0.6 mg/dL (0.6-1.0) Estimated GFR (Cockcroft-Gault) 107.6 BUN/Creatinine Ratio 17 (6-20) Glucose Level 132 mg/dL (70-99) Calcium Level 8.3 mg/dL (8.5-10.1) Total Bilirubin 0.6 mg/dL (0.2-1.0) Aspartate Amino Transf (AST/SGOT) 17 U/L (15-37) Alanine Aminotransferase (ALT/SGPT) 25 U/L (14-59) Alkaline Phosphatase 75 U/L (46-116) Troponin I Quantitative < 0.017 ng/mL (0.000-0.055) Total Protein 6.0 g/dL (6.4-8.2) Albumin 2.9 g/dL (3.4-5.0) Albumin/Globulin Ratio 0.9 (1.0-1.7) Laboratory Tests Test 12/03/18 19:52 12/03/18 20:00 12/03/18 22:03 12/04/18 02:35 Urine Collection Type Unknown Urine Color Yellow Urine Clarity Clear Urine pH 5.0 Urine Specific [place] 1.020 Urine Protein Negative mg/dL (NEG-TRACE) Urine Glucose (UA) Negative mg/dL (NEG) Urine Ketones (Stick) Negative mg/dL (NEG) Urine Blood Negative (NEG) Urine Nitrite Negative (NEG) Urine Bilirubin Negative (NEG) Urine Urobilinogen Dipstick 1.0 mg/dL (0.2 mg/dL) Urine Leukocyte Esterase Negative (NEG) Urine RBC 0 /HPF (0-2) Urine WBC 1-4 /HPF (0-4) Urine Squamous Epithelial Cells Few /LPF Urine Bacteria Few /HPF (0-FEW) Urine Mucus Mod /LPF White Blood Count 11.2 x10^3/uL (4.0-11.0) Red Blood Count 4.73 x10^6/uL (3.50-5.40) Hemoglobin 14.2 g/dL (12.0-15.5) Hematocrit 42.0 % (36.0-47.0) Mean Corpuscular Volume 89 fL (79-100) Mean Corpuscular Hemoglobin 30 pg (25-35) Mean Corpuscular Hemoglobin Concent 34 g/dL (31-37) Red Cell Distribution Width 13.2 % (11.5-14.5) Platelet Count 200 x10^3/uL (140-400) Neutrophils (%) (Auto) 80 % (31-73) Lymphocytes (%) (Auto) 17 % (24-48) Monocytes (%) (Auto) 3 % (0-9) Eosinophils (%) (Auto) 1 % (0-3) Basophils (%) (Auto) 1 % (0-3) Neutrophils # (Auto) 8.9 x10^3uL (1.8-7.7) Lymphocytes # (Auto) 1.8 x10^3/uL (1.0-4.8) Monocytes # (Auto) 0.3 x10^3/uL (0.0-1.1) Eosinophils # (Auto) 0.1 x10^3/uL (0.0-0.7) Basophils # (Auto) 0.1 x10^3/uL (0.0-0.2) Sodium Level 142 mmol/L (136-145) Potassium Level 4.2 mmol/L (3.5-5.1) Chloride Level 103 mmol/L (98-107) Carbon Dioxide Level 29 mmol/L (21-32) Anion Gap 10 (6-14) Blood Urea Nitrogen 14 mg/dL (7-20) Creatinine 0.6 mg/dL (0.6-1.0) Estimated GFR (Cockcroft-Gault) 107.6 BUN/Creatinine Ratio 23 (6-20) Glucose Level 121 mg/dL (70-99) Lactic Acid Level 0.8 mmol/L (0.4-2.0) Calcium Level 8.7 mg/dL (8.5-10.1) Magnesium Level 1.6 mg/dL (1.8-2.4) Total Bilirubin 0.4 mg/dL (0.2-1.0) Aspartate Amino Transf (AST/SGOT) 23 U/L (15-37) Alanine Aminotransferase (ALT/SGPT) 32 U/L (14-59) Alkaline Phosphatase 97 U/L (46-116) Troponin I Quantitative < 0.017 ng/mL (0.000-0.055) < 0.017 ng/mL (0.000-0.055) Total Protein 7.7 g/dL (6.4-8.2) Albumin 3.5 g/dL (3.4-5.0) Albumin/Globulin Ratio 0.8 (1.0-1.7) Lipase 111 U/L (73-393) Bedside Troponin I 0.00 ng/ml (<0.08) Test 12/04/18 05:20 White Blood Count 13.2 x10^3/uL (4.0-11.0) Red Blood Count 4.35 x10^6/uL (3.50-5.40) Hemoglobin 13.0 g/dL (12.0-15.5) Hematocrit 38.6 % (36.0-47.0) Mean Corpuscular Volume 89 fL (79-100) Mean Corpuscular Hemoglobin 30 pg (25-35) Mean Corpuscular Hemoglobin Concent 34 g/dL (31-37) Red Cell Distribution Width 12.7 % (11.5-14.5) Platelet Count 164 x10^3/uL (140-400) Neutrophils (%) (Auto) 84 % (31-73) Lymphocytes (%) (Auto) 10 % (24-48) Monocytes (%) (Auto) 6 % (0-9) Eosinophils (%) (Auto) 0 % (0-3) Basophils (%) (Auto) 0 % (0-3) Neutrophils # (Auto) 11.0 x10^3uL (1.8-7.7) Lymphocytes # (Auto) 1.4 x10^3/uL (1.0-4.8) Monocytes # (Auto) 0.8 x10^3/uL (0.0-1.1) Eosinophils # (Auto) 0.0 x10^3/uL (0.0-0.7) Basophils # (Auto) 0.0 x10^3/uL (0.0-0.2) Sodium Level 140 mmol/L (136-145) Potassium Level 3.8 mmol/L (3.5-5.1) Chloride Level 104 mmol/L (98-107) Carbon Dioxide Level 27 mmol/L (21-32) Anion Gap 9 (6-14) Blood Urea Nitrogen 10 mg/dL (7-20) Creatinine 0.6 mg/dL (0.6-1.0) Estimated GFR (Cockcroft-Gault) 107.6 BUN/Creatinine Ratio 17 (6-20) Glucose Level 132 mg/dL (70-99) Calcium Level 8.3 mg/dL (8.5-10.1) Total Bilirubin 0.6 mg/dL (0.2-1.0) Aspartate Amino Transf (AST/SGOT) 17 U/L (15-37) Alanine Aminotransferase (ALT/SGPT) 25 U/L (14-59) Alkaline Phosphatase 75 U/L (46-116) Troponin I Quantitative < 0.017 ng/mL (0.000-0.055) Total Protein 6.0 g/dL (6.4-8.2) Albumin 2.9 g/dL (3.4-5.0) Albumin/Globulin Ratio 0.9 (1.0-1.7) VTE Prophylaxis Ordered VTE Prophylaxis Devices: No VTE Pharmacological Prophylaxi: Yes Assessment/Plan Assessment/Plan pneumonia sepsis, morbid obesity Vtach, with hypomagnesia, replace K+ and Mag admitted to ICU, vtach, CV and PULM consult try to downgrade status to CV unit today LATIA BAÑUELOS MD Dec 04, 2018 08:50
[2018-12-04] MEDS ORDERED: POTASSIUM CHLORIDE 20 MEQ TABLET.ER. PO ONE (09:00)
[2018-12-04] MEDS ORDERED: MAGNESIUM SULFATE 4GM 100 ML IV ONE (09:00)
[2018-12-04] MEDS: IPRATRPIUM/ALBUTEROL 0.5/2.5MG 3 ML NEBU. NEB SCH ×4 (10:10→19:58)
[2018-12-04] MEDS: POTASSIUM CL 20MEQ D5-0.45NACL 1,000 ML IV SCH (10:24)
[2018-12-04] MEDS: ENOXAPARIN 40 MG/0.4 ML SYRINGE. SQ SCH ×2 (10:25→20:42)
[2018-12-04] MEDS: DOXYCYCLINE HYCLATE 100 MG TABLET PO SCH ×2 (10:25→20:40)
[2018-12-04] MEDS: LACTOBACILLUS RHAMNOSUS GG 1 CAPSULE. PO SCH ×2 (10:25→20:40)
--- NOTE | 2018-12-04 11:00 | CARD ---
MR#: [id number] Date of Study: 12/04/2018 Ordering Physician: JONATHAN BALDWIN, Referring Physician: LONG GURROLA Tech: Alicia Quintero RDCS APPROVED REPORT EXAM: Two-dimensional and M-mode echocardiogram with Doppler and color Doppler. Other Information Quality : Fair INDICATION Arrhythmia Surgery/Intervention ICD/Pacemaker: Date: 2003 2D DIMENSIONS RVDd2.3 (2.9-3.5cm)Left Atrium(2D)4.1 (1.6-4.0cm) IVSd0.8 (0.7-1.1cm)Aortic Root(2D)2.8 (2.0-3.7cm) LVDd5.3 (3.9-5.9cm)LVOT Diameter2.0 (1.8-2.4cm) PWd0.8 (0.7-1.1cm)LVDs3.8 (2.5-4.0cm) FS (%) 28.7 %SV74.0 ml LVEF(%)54.9 (>50%) Aortic Valve AoV Peak Xavi.180.2cm/sAoV VTI34.2cm AO Peak GR.13.0mmHgLVOT VTI 27.88cm AO Mean GR.7mmHgAVA (VTI)2.50cm2 Mitral Valve MV E Ztxyfwks59.2cm/sMV DECEL [id number] MV A Xgmldztl47.0cm/sE/A Ratio1.3 TDI Lateral E' P. V11.78cm/sMedial E' P. V7.79cm/s E/Lateral E'7.7E/Medial E'11.6 Tricuspid Valve TR P. [id number]/sRAP [id number] TR Peak Gr.[id number] Pulmonary Vein S1 Kkouljno50.7cm/sS2 Yifzyqff81.37cm/s D2 Kzvwriju77.4cm/s LEFT VENTRICLE The left ventricle is normal size. There is normal left ventricular wall thickness. The left ventricu lar systolic function is normal and the ejection fraction is within normal range. The Ejection Fracti on is 55-60%. There is normal LV segmental wall motion. The left ventricular diastolic function and f illing is normal for age. RIGHT VENTRICLE The right ventricle is normal size. The right ventricular systolic function is normal. ATRIA The left atrium is mildly dilated. The right atrium is mildly dilated. A pacemaker is seen in the rig ht atrium consistent with history. The interatrial septum is intact with no evidence for an atrial se ptal defect or patent foramen ovale as noted on 2-D or Doppler imaging. AORTIC VALVE The aortic valve is not well visualized but appears to be functioning normally by Doppler interrogati on. Doppler and Color Flow revealed no significant aortic regurgitation. There is no significant aort ic valvular stenosis. MITRAL VALVE The mitral valve is normal in structure and function. There is no evidence of mitral valve prolapse. There is no mitral valve stenosis. Doppler and Color-flow revealed trace mitral regurgitation. TRICUSPID VALVE The tricuspid valve is normal in structure and function. Doppler and Color Flow revealed mild tricusp id regurgitation. There is moderate pulmonary hypertension. The PA pressure was estimated at 42 mmHg. There is no tricuspid valve stenosis. PULMONIC VALVE The pulmonic valve is not well visualized. Doppler and Color Flow revealed no pulmonic valvular regur gitation. There is no pulmonic valvular stenosis. GREAT VESSELS The aortic root is normal in size. The ascending aorta is normal in size. The IVC is normal in size a nd collapses >50% with inspiration. PERICARDIAL EFFUSION There is no evidence of significant pericardial effusion. Critical Notification Critical Value: No <Conclusion> The left ventricular systolic function is normal and the ejection fraction is within normal range. Th e Ejection Fraction is 55-60%. There is normal LV segmental wall motion. The right atrium is mildly dilated. A pacemaker is seen in the right atrium consistent with history. Doppler and Color Flow revealed mild tricuspid regurgitation. There is moderate pulmonary hypertensio n. The PA pressure was estimated at 42 mmHg. Signed by : Tramaine Valadez, Electronically Approved : 12/04/2018 10:59:38
--- NOTE | 2018-12-04 12:36 | PDOC2 ---
CARDIAC CONSULT DATE OF CONSULT Date of Consult DATE: 12/04/18 TIME: 12:15 REASON FOR CONSULT Reason for Consult: V tach episodes REFERRING PHYSICIAN Referring Physician: Fox SOURCE Source: Chart review, Patient HISTORY OF PRESENT ILLNESS HISTORY OF PRESENT ILLNESS This is a pleasant 48 yo female admitted for complains of coughing, chills and vomiting and sensation of being shocked by her ICD. She has long QT syndrome and has been having symptoms of coughing in the last 2 days and also some vomiting. No chest pain or SOA and no symptoms of palpitations. She has not seen her healthcare business analyst Dr. Tillman for about a yr. She takes nadolol at home and has been complaint with her meds.. No passing ouot, recent episodes of her being shocked and no cardiac symptoms till she started having her vomiting as mentioned in the latter. PAST MEDICAL HISTORY Cardiovascular: Other (long QT syndrome) GI: GERD Heme/Onc: No pertinent hx Hepatobiliary: No pertinent hx Psych: No pertinent hx Musculoskeletal: Osteoarthritis Rheumatologic: No pertinent hx Infectious disease: No pertinent hx ENT: Allergic Rhinitis Renal/: No pertinent hx Endocrine: No pertinent hx PAST SURGICAL HISTORY Past Surgical History: Pacemaker (AICD with revision due to infection ), Cholecystectomy, (x2) FAMILY HISTORY Family History: Other (long QT syndrome: son) SOCIAL HISTORY Smoke: Quit ALCOHOL: occassional Drugs: None Lives: with Family CURRENT MEDICATIONS CURRENT MEDICATIONS Current Medications Medications (Trade) Dose Ordered Sig/Hawa Route PRN Reason Start Time Stop Time Status Last Admin Dose Admin Sodium Chloride 1,000 ml @ 1,000 mls/hr 1X ONCE IV 12/03/18 20:00 12/03/18 20:59 DC 12/03/18 20:00 Magnesium Sulfate/ Dextrose 100 ml @ 100 mls/hr 1X ONCE IV 12/03/18 21:30 12/03/18 22:29 DC 12/03/18 21:30 Sodium Chloride 1,000 ml @ 1,000 mls/hr 1X ONCE IV 12/03/18 21:30 12/03/18 22:29 DC 12/03/18 21:26 Amiodarone HCl (Cordarone) 150 mg 1X ONCE IVP 12/03/18 21:30 12/03/18 21:34 DC 12/03/18 21:19 Acetaminophen (Tylenol) 650 mg PRN Q6HRS PRN PO FEVER 12/04/18 00:15 12/04/18 08:07 DC 12/04/18 00:34 Acetaminophen (Tylenol) 650 mg PRN Q6HRS PRN PO FEVER > 100.5'F 12/04/18 00:15 12/04/18 08:20 Ceftriaxone Sodium (Rocephin) 1 gm ONCE ONCE IVP 12/04/18 00:45 12/04/18 00:46 DC 12/04/18 01:17 Ceftriaxone Sodium (Rocephin) 1 gm ONCE ONCE IVP 12/04/18 01:30 12/04/18 01:31 DC 12/04/18 01:24 Lactobacillus Rhamnosus (Culturelle) 1 cap BID PO 12/04/18 09:00 12/04/18 10:25 Potassium Chloride (Klor-Con) 20 meq 1X ONCE PO 12/04/18 09:00 12/04/18 09:01 DC 12/04/18 10:26 Magnesium Sulfate/ Dextrose 100 ml @ 25 mls/hr 1X ONCE IV 12/04/18 09:00 12/04/18 12:59 12/04/18 10:25 Doxycycline Hyclate (Vibra-Tab) 100 mg BID PO 12/04/18 09:00 12/04/18 10:25 Enoxaparin Sodium (Lovenox 40mg Syringe) 40 mg BID SQ 12/04/18 09:00 12/04/18 10:25 Albuterol/ Ipratropium (Duoneb) 3 ml RTQID NEB 12/04/18 09:00 12/04/18 10:10 Potassium Chloride/Dextrose/ Sod Cl 1,000 ml @ 80 mls/hr [id number] IV 12/04/18 09:00 12/04/18 10:24 ALLERGIES ALLERGIES: Coded Allergies: Penicillins (Verified Allergy, Intermediate, 12/04/18) ROS Review of System 14 point ROS evaluated with pertinent positives noted per HPI PHYSICAL EXAM General: Alert, Oriented X3, Cooperative, No acute distress HEENT: Mucous membr. moist/pink Lungs: Other (right basilar crackles) Heart: Regular rate (SR), Other (distant heart sounds) Extremities: No cyanosis, No edema Skin: No breakdown, No significant lesion Neuro: Normal speech, Sensation intact Psych/Mental Status: Mental status NL, Mood NL MUSCULOSKELETAL: Osteoarthritic changes both hands VITALS VITALS Vital Signs Date Time Temp Pulse Resp B/P (MAP) Pulse Ox O2 Delivery O2 Flow Rate FiO2 12/04/18 11:38 98.8 70 16 136/76 (96) 95 Room Air 98.8 12/04/18 06:15 5.0 LABS Lab: Laboratory Tests Test 12/03/18 19:52 12/03/18 20:00 12/03/18 22:03 12/04/18 02:35 Urine Collection Type Unknown Urine Color Yellow Urine Clarity Clear Urine pH 5.0 Urine Specific [place] 1.020 Urine Protein Negative mg/dL (NEG-TRACE) Urine Glucose (UA) Negative mg/dL (NEG) Urine Ketones (Stick) Negative mg/dL (NEG) Urine Blood Negative (NEG) Urine Nitrite Negative (NEG) Urine Bilirubin Negative (NEG) Urine Urobilinogen Dipstick 1.0 mg/dL (0.2 mg/dL) Urine Leukocyte Esterase Negative (NEG) Urine RBC 0 /HPF (0-2) Urine WBC 1-4 /HPF (0-4) Urine Squamous Epithelial Cells Few /LPF Urine Bacteria Few /HPF (0-FEW) Urine Mucus Mod /LPF White Blood Count 11.2 x10^3/uL (4.0-11.0) Red Blood Count 4.73 x10^6/uL (3.50-5.40) Hemoglobin 14.2 g/dL (12.0-15.5) Hematocrit 42.0 % (36.0-47.0) Mean Corpuscular Volume 89 fL (79-100) Mean Corpuscular Hemoglobin 30 pg (25-35) Mean Corpuscular Hemoglobin Concent 34 g/dL (31-37) Red Cell Distribution Width 13.2 % (11.5-14.5) Platelet Count 200 x10^3/uL (140-400) Neutrophils (%) (Auto) 80 % (31-73) Lymphocytes (%) (Auto) 17 % (24-48) Monocytes (%) (Auto) 3 % (0-9) Eosinophils (%) (Auto) 1 % (0-3) Basophils (%) (Auto) 1 % (0-3) Neutrophils # (Auto) 8.9 x10^3uL (1.8-7.7) Lymphocytes # (Auto) 1.8 x10^3/uL (1.0-4.8) Monocytes # (Auto) 0.3 x10^3/uL (0.0-1.1) Eosinophils # (Auto) 0.1 x10^3/uL (0.0-0.7) Basophils # (Auto) 0.1 x10^3/uL (0.0-0.2) Sodium Level 142 mmol/L (136-145) Potassium Level 4.2 mmol/L (3.5-5.1) Chloride Level 103 mmol/L (98-107) Carbon Dioxide Level 29 mmol/L (21-32) Anion Gap 10 (6-14) Blood Urea Nitrogen 14 mg/dL (7-20) Creatinine 0.6 mg/dL (0.6-1.0) Estimated GFR (Cockcroft-Gault) 107.6 BUN/Creatinine Ratio 23 (6-20) Glucose Level 121 mg/dL (70-99) Lactic Acid Level 0.8 mmol/L (0.4-2.0) Calcium Level 8.7 mg/dL (8.5-10.1) Magnesium Level 1.6 mg/dL (1.8-2.4) Total Bilirubin 0.4 mg/dL (0.2-1.0) Aspartate Amino Transf (AST/SGOT) 23 U/L (15-37) Alanine Aminotransferase (ALT/SGPT) 32 U/L (14-59) Alkaline Phosphatase 97 U/L (46-116) Troponin I Quantitative < 0.017 ng/mL (0.000-0.055) < 0.017 ng/mL (0.000-0.055) Total Protein 7.7 g/dL (6.4-8.2) Albumin 3.5 g/dL (3.4-5.0) Albumin/Globulin Ratio 0.8 (1.0-1.7) Lipase 111 U/L (73-393) Bedside Troponin I 0.00 ng/ml (<0.08) Test 12/04/18 05:20 White Blood Count 13.2 x10^3/uL (4.0-11.0) Red Blood Count 4.35 x10^6/uL (3.50-5.40) Hemoglobin 13.0 g/dL (12.0-15.5) Hematocrit 38.6 % (36.0-47.0) Mean Corpuscular Volume 89 fL (79-100) Mean Corpuscular Hemoglobin 30 pg (25-35) Mean Corpuscular Hemoglobin Concent 34 g/dL (31-37) Red Cell Distribution Width 12.7 % (11.5-14.5) Platelet Count 164 x10^3/uL (140-400) Neutrophils (%) (Auto) 84 % (31-73) Lymphocytes (%) (Auto) 10 % (24-48) Monocytes (%) (Auto) 6 % (0-9) Eosinophils (%) (Auto) 0 % (0-3) Basophils (%) (Auto) 0 % (0-3) Neutrophils # (Auto) 11.0 x10^3uL (1.8-7.7) Lymphocytes # (Auto) 1.4 x10^3/uL (1.0-4.8) Monocytes # (Auto) 0.8 x10^3/uL (0.0-1.1) Eosinophils # (Auto) 0.0 x10^3/uL (0.0-0.7) Basophils # (Auto) 0.0 x10^3/uL (0.0-0.2) Sodium Level 140 mmol/L (136-145) Potassium Level 3.8 mmol/L (3.5-5.1) Chloride Level 104 mmol/L (98-107) Carbon Dioxide Level 27 mmol/L (21-32) Anion Gap 9 (6-14) Blood Urea Nitrogen 10 mg/dL (7-20) Creatinine 0.6 mg/dL (0.6-1.0) Estimated GFR (Cockcroft-Gault) 107.6 BUN/Creatinine Ratio 17 (6-20) Glucose Level 132 mg/dL (70-99) Calcium Level 8.3 mg/dL (8.5-10.1) Magnesium Level 1.7 mg/dL (1.8-2.4) Total Bilirubin 0.6 mg/dL (0.2-1.0) Aspartate Amino Transf (AST/SGOT) 17 U/L (15-37) Alanine Aminotransferase (ALT/SGPT) 25 U/L (14-59) Alkaline Phosphatase 75 U/L (46-116) Troponin I Quantitative < 0.017 ng/mL (0.000-0.055) Total Protein 6.0 g/dL (6.4-8.2) Albumin 2.9 g/dL (3.4-5.0) Albumin/Globulin Ratio 0.9 (1.0-1.7) ECHOCARDIOGRAM ECHOCARDIOGRAM <Conclusion> The left ventricular systolic function is normal and the ejection fraction is within normal range. The Ejection Fraction is 55-60%. There is normal LV segmental wall motion. The right atrium is mildly dilated. A pacemaker is seen in the right atrium consistent with history. Doppler and Color Flow revealed mild tricuspid regurgitation. There is moderate pulmonary hypertension. The PA pressure was estimated at 42 mmHg. DATE: 12/04/18 1054 ASSESSMENT/PLAN ASSESSMENT/PLAN 1. RLL CAP 2. Likely Torsades: Brief run prompting ATP therapy x1 induced by electrolyte imbalance from vomiting. 3. Long QT syndrome: EF and WM nml. QTc 491 4. AICD in situ: due to above. Boxxet. DDDR mode, battery life 9 yrs. normal function. SR 5. Morbid obesity Recommendations 1. Maintain hydration. Goal Mg and K at 2.0 and 4.0 respectively, replace as warranted 2. Encouraged to follow up with Dr. Galeana next week. 3. Restart home nadolol equivalence. 4. Avoid QT prolonging meds. 5. Antibiotic per PCP 6. Will need outpt TRISH w/u JONATHAN BALDWIN APRN Dec 04, 2018 12:36
--- NOTE | 2018-12-04 14:54 | PDOC ---
PULMONARY PROGRESS NOTES Vitals Vital Signs Date Time Temp Pulse Resp B/P (MAP) Pulse Ox O2 Delivery O2 Flow Rate FiO2 12/04/18 13:16 Room Air 12/04/18 11:38 98.8 70 16 136/76 (96) 95 98.8 12/04/18 06:15 5.0 Labs Laboratory Tests Test 12/03/18 19:52 12/03/18 20:00 12/03/18 22:03 12/04/18 02:35 Urine Collection Type Unknown Urine Color Yellow Urine Clarity Clear Urine pH 5.0 Urine Specific [place] 1.020 Urine Protein Negative mg/dL (NEG-TRACE) Urine Glucose (UA) Negative mg/dL (NEG) Urine Ketones (Stick) Negative mg/dL (NEG) Urine Blood Negative (NEG) Urine Nitrite Negative (NEG) Urine Bilirubin Negative (NEG) Urine Urobilinogen Dipstick 1.0 mg/dL (0.2 mg/dL) Urine Leukocyte Esterase Negative (NEG) Urine RBC 0 /HPF (0-2) Urine WBC 1-4 /HPF (0-4) Urine Squamous Epithelial Cells Few /LPF Urine Bacteria Few /HPF (0-FEW) Urine Mucus Mod /LPF White Blood Count 11.2 x10^3/uL (4.0-11.0) Red Blood Count 4.73 x10^6/uL (3.50-5.40) Hemoglobin 14.2 g/dL (12.0-15.5) Hematocrit 42.0 % (36.0-47.0) Mean Corpuscular Volume 89 fL (79-100) Mean Corpuscular Hemoglobin 30 pg (25-35) Mean Corpuscular Hemoglobin Concent 34 g/dL (31-37) Red Cell Distribution Width 13.2 % (11.5-14.5) Platelet Count 200 x10^3/uL (140-400) Neutrophils (%) (Auto) 80 % (31-73) Lymphocytes (%) (Auto) 17 % (24-48) Monocytes (%) (Auto) 3 % (0-9) Eosinophils (%) (Auto) 1 % (0-3) Basophils (%) (Auto) 1 % (0-3) Neutrophils # (Auto) 8.9 x10^3uL (1.8-7.7) Lymphocytes # (Auto) 1.8 x10^3/uL (1.0-4.8) Monocytes # (Auto) 0.3 x10^3/uL (0.0-1.1) Eosinophils # (Auto) 0.1 x10^3/uL (0.0-0.7) Basophils # (Auto) 0.1 x10^3/uL (0.0-0.2) Sodium Level 142 mmol/L (136-145) Potassium Level 4.2 mmol/L (3.5-5.1) Chloride Level 103 mmol/L (98-107) Carbon Dioxide Level 29 mmol/L (21-32) Anion Gap 10 (6-14) Blood Urea Nitrogen 14 mg/dL (7-20) Creatinine 0.6 mg/dL (0.6-1.0) Estimated GFR (Cockcroft-Gault) 107.6 BUN/Creatinine Ratio 23 (6-20) Glucose Level 121 mg/dL (70-99) Lactic Acid Level 0.8 mmol/L (0.4-2.0) Calcium Level 8.7 mg/dL (8.5-10.1) Magnesium Level 1.6 mg/dL (1.8-2.4) Total Bilirubin 0.4 mg/dL (0.2-1.0) Aspartate Amino Transf (AST/SGOT) 23 U/L (15-37) Alanine Aminotransferase (ALT/SGPT) 32 U/L (14-59) Alkaline Phosphatase 97 U/L (46-116) Troponin I Quantitative < 0.017 ng/mL (0.000-0.055) < 0.017 ng/mL (0.000-0.055) Total Protein 7.7 g/dL (6.4-8.2) Albumin 3.5 g/dL (3.4-5.0) Albumin/Globulin Ratio 0.8 (1.0-1.7) Lipase 111 U/L (73-393) Bedside Troponin I 0.00 ng/ml (<0.08) Test 12/04/18 05:20 White Blood Count 13.2 x10^3/uL (4.0-11.0) Red Blood Count 4.35 x10^6/uL (3.50-5.40) Hemoglobin 13.0 g/dL (12.0-15.5) Hematocrit 38.6 % (36.0-47.0) Mean Corpuscular Volume 89 fL (79-100) Mean Corpuscular Hemoglobin 30 pg (25-35) Mean Corpuscular Hemoglobin Concent 34 g/dL (31-37) Red Cell Distribution Width 12.7 % (11.5-14.5) Platelet Count 164 x10^3/uL (140-400) Neutrophils (%) (Auto) 84 % (31-73) Lymphocytes (%) (Auto) 10 % (24-48) Monocytes (%) (Auto) 6 % (0-9) Eosinophils (%) (Auto) 0 % (0-3) Basophils (%) (Auto) 0 % (0-3) Neutrophils # (Auto) 11.0 x10^3uL (1.8-7.7) Lymphocytes # (Auto) 1.4 x10^3/uL (1.0-4.8) Monocytes # (Auto) 0.8 x10^3/uL (0.0-1.1) Eosinophils # (Auto) 0.0 x10^3/uL (0.0-0.7) Basophils # (Auto) 0.0 x10^3/uL (0.0-0.2) Sodium Level 140 mmol/L (136-145) Potassium Level 3.8 mmol/L (3.5-5.1) Chloride Level 104 mmol/L (98-107) Carbon Dioxide Level 27 mmol/L (21-32) Anion Gap 9 (6-14) Blood Urea Nitrogen 10 mg/dL (7-20) Creatinine 0.6 mg/dL (0.6-1.0) Estimated GFR (Cockcroft-Gault) 107.6 BUN/Creatinine Ratio 17 (6-20) Glucose Level 132 mg/dL (70-99) Calcium Level 8.3 mg/dL (8.5-10.1) Magnesium Level 1.7 mg/dL (1.8-2.4) Total Bilirubin 0.6 mg/dL (0.2-1.0) Aspartate Amino Transf (AST/SGOT) 17 U/L (15-37) Alanine Aminotransferase (ALT/SGPT) 25 U/L (14-59) Alkaline Phosphatase 75 U/L (46-116) Troponin I Quantitative < 0.017 ng/mL (0.000-0.055) Total Protein 6.0 g/dL (6.4-8.2) Albumin 2.9 g/dL (3.4-5.0) Albumin/Globulin Ratio 0.9 (1.0-1.7) Laboratory Tests Test 12/03/18 19:52 12/03/18 20:00 12/03/18 22:03 12/04/18 02:35 Urine Collection Type Unknown Urine Color Yellow Urine Clarity Clear Urine pH 5.0 Urine Specific [place] 1.020 Urine Protein Negative mg/dL (NEG-TRACE) Urine Glucose (UA) Negative mg/dL (NEG) Urine Ketones (Stick) Negative mg/dL (NEG) Urine Blood Negative (NEG) Urine Nitrite Negative (NEG) Urine Bilirubin Negative (NEG) Urine Urobilinogen Dipstick 1.0 mg/dL (0.2 mg/dL) Urine Leukocyte Esterase Negative (NEG) Urine RBC 0 /HPF (0-2) Urine WBC 1-4 /HPF (0-4) Urine Squamous Epithelial Cells Few /LPF Urine Bacteria Few /HPF (0-FEW) Urine Mucus Mod /LPF White Blood Count 11.2 x10^3/uL (4.0-11.0) Red Blood Count 4.73 x10^6/uL (3.50-5.40) Hemoglobin 14.2 g/dL (12.0-15.5) Hematocrit 42.0 % (36.0-47.0) Mean Corpuscular Volume 89 fL (79-100) Mean Corpuscular Hemoglobin 30 pg (25-35) Mean Corpuscular Hemoglobin Concent 34 g/dL (31-37) Red Cell Distribution Width 13.2 % (11.5-14.5) Platelet Count 200 x10^3/uL (140-400) Neutrophils (%) (Auto) 80 % (31-73) Lymphocytes (%) (Auto) 17 % (24-48) Monocytes (%) (Auto) 3 % (0-9) Eosinophils (%) (Auto) 1 % (0-3) Basophils (%) (Auto) 1 % (0-3) Neutrophils # (Auto) 8.9 x10^3uL (1.8-7.7) Lymphocytes # (Auto) 1.8 x10^3/uL (1.0-4.8) Monocytes # (Auto) 0.3 x10^3/uL (0.0-1.1) Eosinophils # (Auto) 0.1 x10^3/uL (0.0-0.7) Basophils # (Auto) 0.1 x10^3/uL (0.0-0.2) Sodium Level 142 mmol/L (136-145) Potassium Level 4.2 mmol/L (3.5-5.1) Chloride Level 103 mmol/L (98-107) Carbon Dioxide Level 29 mmol/L (21-32) Anion Gap 10 (6-14) Blood Urea Nitrogen 14 mg/dL (7-20) Creatinine 0.6 mg/dL (0.6-1.0) Estimated GFR (Cockcroft-Gault) 107.6 BUN/Creatinine Ratio 23 (6-20) Glucose Level 121 mg/dL (70-99) Lactic Acid Level 0.8 mmol/L (0.4-2.0) Calcium Level 8.7 mg/dL (8.5-10.1) Magnesium Level 1.6 mg/dL (1.8-2.4) Total Bilirubin 0.4 mg/dL (0.2-1.0) Aspartate Amino Transf (AST/SGOT) 23 U/L (15-37) Alanine Aminotransferase (ALT/SGPT) 32 U/L (14-59) Alkaline Phosphatase 97 U/L (46-116) Troponin I Quantitative < 0.017 ng/mL (0.000-0.055) < 0.017 ng/mL (0.000-0.055) Total Protein 7.7 g/dL (6.4-8.2) Albumin 3.5 g/dL (3.4-5.0) Albumin/Globulin Ratio 0.8 (1.0-1.7) Lipase 111 U/L (73-393) Bedside Troponin I 0.00 ng/ml (<0.08) Test 12/04/18 05:20 White Blood Count 13.2 x10^3/uL (4.0-11.0) Red Blood Count 4.35 x10^6/uL (3.50-5.40) Hemoglobin 13.0 g/dL (12.0-15.5) Hematocrit 38.6 % (36.0-47.0) Mean Corpuscular Volume 89 fL (79-100) Mean Corpuscular Hemoglobin 30 pg (25-35) Mean Corpuscular Hemoglobin Concent 34 g/dL (31-37) Red Cell Distribution Width 12.7 % (11.5-14.5) Platelet Count 164 x10^3/uL (140-400) Neutrophils (%) (Auto) 84 % (31-73) Lymphocytes (%) (Auto) 10 % (24-48) Monocytes (%) (Auto) 6 % (0-9) Eosinophils (%) (Auto) 0 % (0-3) Basophils (%) (Auto) 0 % (0-3) Neutrophils # (Auto) 11.0 x10^3uL (1.8-7.7) Lymphocytes # (Auto) 1.4 x10^3/uL (1.0-4.8) Monocytes # (Auto) 0.8 x10^3/uL (0.0-1.1) Eosinophils # (Auto) 0.0 x10^3/uL (0.0-0.7) Basophils # (Auto) 0.0 x10^3/uL (0.0-0.2) Sodium Level 140 mmol/L (136-145) Potassium Level 3.8 mmol/L (3.5-5.1) Chloride Level 104 mmol/L (98-107) Carbon Dioxide Level 27 mmol/L (21-32) Anion Gap 9 (6-14) Blood Urea Nitrogen 10 mg/dL (7-20) Creatinine 0.6 mg/dL (0.6-1.0) Estimated GFR (Cockcroft-Gault) 107.6 BUN/Creatinine Ratio 17 (6-20) Glucose Level 132 mg/dL (70-99) Calcium Level 8.3 mg/dL (8.5-10.1) Magnesium Level 1.7 mg/dL (1.8-2.4) Total Bilirubin 0.6 mg/dL (0.2-1.0) Aspartate Amino Transf (AST/SGOT) 17 U/L (15-37) Alanine Aminotransferase (ALT/SGPT) 25 U/L (14-59) Alkaline Phosphatase 75 U/L (46-116) Troponin I Quantitative < 0.017 ng/mL (0.000-0.055) Total Protein 6.0 g/dL (6.4-8.2) Albumin 2.9 g/dL (3.4-5.0) Albumin/Globulin Ratio 0.9 (1.0-1.7) Medications Active Scripts Medications Dose Route/Sig Max Daily Dose Days Date Category Bactrim Ds Tablet (Sulfamethoxazole/Trimethoprim) 1 Each Tablet 1 Tab PO BID 08/19/17 Rx Proventil Hfa Inhaler (Albuterol Sulfate) 6.7 Gm Hfa.aer.ad 1-2 Puff IH PRN Q4HRS PRN 08/19/17 Rx Bactrim 400-80 Mg Tablet (Sulfamethoxazole/Trimethoprim) 1 Each Tablet 1 Tab PO BID 06/16/17 Rx [place] 5-325 Tablet (Acetaminophen/Hydrocodone Bitart) 1 Each Tablet 1-2 Tab PO PRN Q6HRS PRN 20 06/16/17 Rx Carafate (Sucralfate) 1 Gm/10 Ml Oral.susp 10 Ml PO TIDAC 06/16/17 Rx Hydrocodone-Apap 5-325 (Hydrocodone Bit/Acetaminophen) 1 Each Tablet 1-2 Tab PO PRN Q4-6HRS PRN 06/20/16 Rx Cyclobenzaprine Hcl 5 Mg Tablet 1 Tab PO TID PRN 06/20/16 Rx Impression . NOTE DICTATED SEE ORDERS PNEUMONIA BASSEM MIR MD Dec 04, 2018 14:54
--- NOTE | 2018-12-04 15:04 | NUR ---
SS following for discharge planning. SS reviewed pt chart. Pt is from home and is currently on room air. No discharge needs noted at this time. SS will continue to follow for discharge planning.
[2018-12-04] MEDS ORDERED: NADO40TA PO (18:24)
[2018-12-04] MEDS ORDERED: OMEG1CAP6 PO (18:24)
[2018-12-04] MEDS ORDERED: OMEP20TA63 PO (18:24)
[2018-12-04] MEDS ORDERED: CETI10TA22 PO (18:24)
[2018-12-04] MEDS ORDERED: LISI-334 PO (18:24)
[2018-12-04] MEDS: METOPROLOL TART IMMED RELEASE 50 MG TABLET. PO SCH (20:48)
[2018-12-04] MEDS ORDERED: LISINOPRIL 20 MG TABLET PO SCH (21:00)
[2018-12-04] MEDS ORDERED: cefTRIAXone IV Push 1 GM VIAL. IVP SCH (22:00)
[2018-12-05 02:27] VITALS: BP 120/77
[2018-12-05] MEDS: POTASSIUM CL 20MEQ D5-0.45NACL 1,000 ML IV SCH ×2 (03:02→15:16)
--- NOTE | 2018-12-05 06:08 | CONS ---
DATE OF CONSULTATION: 12/04/2018 ATTENDING PHYSICIAN: Renea Aviles MD. REASON FOR CONSULTATION: The patient is seen in pulmonary consultation at the request of Dr. Aviles for abnormal x-ray. HISTORY OF PRESENT ILLNESS: The patient is a 48-year-old female that has a history of long QT syndrome, status post AICD placement. Yesterday, she felt some shortness of air, cough, mostly nonproductive, some sinus congestion, generalized fatigue. The patient also noted that there the defibrillator was charging, but it never did shock her. She was admitted. Part of her workup included a chest x-ray. I reviewed the x-ray. There was a right lower lobe infiltrate. I was asked to see her in consultation. The patient quit tobacco approximately 10 years ago, smoked for a total of 20 years, does not carry a diagnosis of COPD. Intermittently, she is prescribed albuterol. She now has a cough, mostly productive of some discolored sputum. She has also had some sick contacts. PAST MEDICAL HISTORY: Type 2 diabetes; gastroesophageal reflux; hypertension; long QT syndrome; tobacco dependence, in remission; possible COPD. PAST SURGICAL HISTORY: AICD placement, previous D and C. FAMILY HISTORY: COPD. SOCIAL HISTORY: She quit tobacco approximately 10 years ago. REVIEW OF SYSTEMS: CONSTITUTIONAL: No fever or chills. Sleep hygiene was reviewed. She does snore. She awakens multiple times throughout the night, at times gasping for air in the morning. She awakens unrefreshed from sleep. She also experiences intermittent periods of excessive daytime sleepiness. EYES: No change in visual acuity. HEENT: As indicated above. RESPIRATORY: As indicated above. CARDIOVASCULAR: No chest pain. No pressure. GASTROINTESTINAL: No nausea, vomiting, diarrhea. GENITOURINARY: No dysuria or frequency. MUSCULOSKELETAL: Denies any localized muscle aches or joint pain. SKIN: No new skin rashes. NEUROLOGIC: No headaches, diplopia or blurred vision. CURRENT MEDICATIONS: List was reviewed. ALLERGIES: PENICILLIN. PHYSICAL EXAMINATION: GENERAL: Morbid obese individual with body mass index of 49. HEENT: Eyes: The sclerae were nonicteric. NECK: Jugular venous distention was not elevated. No lymphadenopathy. CHEST: Full expansion. LUNGS: Adequate airway flow with no wheezes. CARDIOVASCULAR: Regular rate and rhythm with S1, S2, no S3. ABDOMEN: Obese. EXTREMITIES: No clubbing, cyanosis. 1+ edema. NEUROLOGIC: The patient was awake, alert, following commands. A detailed neuro exam was not performed. LABORATORY DATA: Reviewed. White count was slightly elevated. Hemoglobin and hematocrit were noted. Electrolytes were noted. BUN and creatinine were noted. Chest x-ray as indicated above. IMPRESSION: 1. Abnormal x-ray. 2. Pneumonia, suspect Gram negative/Gram positive. 3. Chronic obstructive pulmonary disease with acute exacerbation. 4. Long QT syndrome. 5. Status post automatic implantable cardioverter-defibrillator. 6. Morbid obesity. 7. Obstructive sleep apnea. PLAN: From a pulmonary standpoint of view, I recommend: 1. Continue antibiotics. 2. Outpatient polysomnogram. 3. Follow Cardiology input. I do appreciate the privilege in sharing in the patient's care. BASSEM MIR MD DR: NASRA/carlos a JOB#: [id number] / [id number]
[2018-12-05] MEDS ORDERED: PANTOPRAZOLE 40 MG TABLET.DR. PO SCH (07:30)
[2018-12-05] MEDS: IPRATRPIUM/ALBUTEROL 0.5/2.5MG 3 ML NEBU. NEB SCH ×4 (07:32→19:38)
[2018-12-05 07:56] VITALS: BP 167/84
[2018-12-05] MEDS: DOXYCYCLINE HYCLATE 100 MG TABLET PO SCH (08:49)
[2018-12-05] MEDS: LACTOBACILLUS RHAMNOSUS GG 1 CAPSULE. PO SCH (08:49)
[2018-12-05] MEDS: ENOXAPARIN 40 MG/0.4 ML SYRINGE. SQ SCH (08:50)
[2018-12-05] MEDS: METOPROLOL TART IMMED RELEASE 50 MG TABLET. PO SCH (08:50)
[2018-12-05] MEDS ORDERED: OMEGA-3 FATTY ACIDS/FISH OIL 1,000 MG CAPSULE. PO SCH (09:00)
[2018-12-05] MEDS ORDERED: CETIRIZINE HCL 10 MG TABLET. PO SCH (09:00)
--- NOTE | 2018-12-05 09:08 | PDOC ---
PULMONARY PROGRESS NOTES Subjective PT FEELS BETTER Vitals Vital Signs Date Time Temp Pulse Resp B/P (MAP) Pulse Ox O2 Delivery O2 Flow Rate FiO2 12/05/18 08:50 70 167/84 12/05/18 07:56 98.7 20 94 Room Air 98.7 ROS: No Nausea, No Chest Pain, No Abdominal Pain, No Increase Cough Lungs: Crackles Cardiovascular: S1, S2 Abdomen: Soft, Non-tender Neuro Exam: Alert Extremities: No Edema Skin: Warm Labs Laboratory Tests Test 12/03/18 19:52 12/03/18 20:00 12/03/18 22:03 12/04/18 02:35 Urine Collection Type Unknown Urine Color Yellow Urine Clarity Clear Urine pH 5.0 Urine Specific [place] 1.020 Urine Protein Negative mg/dL (NEG-TRACE) Urine Glucose (UA) Negative mg/dL (NEG) Urine Ketones (Stick) Negative mg/dL (NEG) Urine Blood Negative (NEG) Urine Nitrite Negative (NEG) Urine Bilirubin Negative (NEG) Urine Urobilinogen Dipstick 1.0 mg/dL (0.2 mg/dL) Urine Leukocyte Esterase Negative (NEG) Urine RBC 0 /HPF (0-2) Urine WBC 1-4 /HPF (0-4) Urine Squamous Epithelial Cells Few /LPF Urine Bacteria Few /HPF (0-FEW) Urine Mucus Mod /LPF White Blood Count 11.2 x10^3/uL (4.0-11.0) Red Blood Count 4.73 x10^6/uL (3.50-5.40) Hemoglobin 14.2 g/dL (12.0-15.5) Hematocrit 42.0 % (36.0-47.0) Mean Corpuscular Volume 89 fL (79-100) Mean Corpuscular Hemoglobin 30 pg (25-35) Mean Corpuscular Hemoglobin Concent 34 g/dL (31-37) Red Cell Distribution Width 13.2 % (11.5-14.5) Platelet Count 200 x10^3/uL (140-400) Neutrophils (%) (Auto) 80 % (31-73) Lymphocytes (%) (Auto) 17 % (24-48) Monocytes (%) (Auto) 3 % (0-9) Eosinophils (%) (Auto) 1 % (0-3) Basophils (%) (Auto) 1 % (0-3) Neutrophils # (Auto) 8.9 x10^3uL (1.8-7.7) Lymphocytes # (Auto) 1.8 x10^3/uL (1.0-4.8) Monocytes # (Auto) 0.3 x10^3/uL (0.0-1.1) Eosinophils # (Auto) 0.1 x10^3/uL (0.0-0.7) Basophils # (Auto) 0.1 x10^3/uL (0.0-0.2) Sodium Level 142 mmol/L (136-145) Potassium Level 4.2 mmol/L (3.5-5.1) Chloride Level 103 mmol/L (98-107) Carbon Dioxide Level 29 mmol/L (21-32) Anion Gap 10 (6-14) Blood Urea Nitrogen 14 mg/dL (7-20) Creatinine 0.6 mg/dL (0.6-1.0) Estimated GFR (Cockcroft-Gault) 107.6 BUN/Creatinine Ratio 23 (6-20) Glucose Level 121 mg/dL (70-99) Lactic Acid Level 0.8 mmol/L (0.4-2.0) Calcium Level 8.7 mg/dL (8.5-10.1) Magnesium Level 1.6 mg/dL (1.8-2.4) Total Bilirubin 0.4 mg/dL (0.2-1.0) Aspartate Amino Transf (AST/SGOT) 23 U/L (15-37) Alanine Aminotransferase (ALT/SGPT) 32 U/L (14-59) Alkaline Phosphatase 97 U/L (46-116) Troponin I Quantitative < 0.017 ng/mL (0.000-0.055) < 0.017 ng/mL (0.000-0.055) Total Protein 7.7 g/dL (6.4-8.2) Albumin 3.5 g/dL (3.4-5.0) Albumin/Globulin Ratio 0.8 (1.0-1.7) Lipase 111 U/L (73-393) Bedside Troponin I 0.00 ng/ml (<0.08) Test 12/04/18 05:20 White Blood Count 13.2 x10^3/uL (4.0-11.0) Red Blood Count 4.35 x10^6/uL (3.50-5.40) Hemoglobin 13.0 g/dL (12.0-15.5) Hematocrit 38.6 % (36.0-47.0) Mean Corpuscular Volume 89 fL (79-100) Mean Corpuscular Hemoglobin 30 pg (25-35) Mean Corpuscular Hemoglobin Concent 34 g/dL (31-37) Red Cell Distribution Width 12.7 % (11.5-14.5) Platelet Count 164 x10^3/uL (140-400) Neutrophils (%) (Auto) 84 % (31-73) Lymphocytes (%) (Auto) 10 % (24-48) Monocytes (%) (Auto) 6 % (0-9) Eosinophils (%) (Auto) 0 % (0-3) Basophils (%) (Auto) 0 % (0-3) Neutrophils # (Auto) 11.0 x10^3uL (1.8-7.7) Lymphocytes # (Auto) 1.4 x10^3/uL (1.0-4.8) Monocytes # (Auto) 0.8 x10^3/uL (0.0-1.1) Eosinophils # (Auto) 0.0 x10^3/uL (0.0-0.7) Basophils # (Auto) 0.0 x10^3/uL (0.0-0.2) Sodium Level 140 mmol/L (136-145) Potassium Level 3.8 mmol/L (3.5-5.1) Chloride Level 104 mmol/L (98-107) Carbon Dioxide Level 27 mmol/L (21-32) Anion Gap 9 (6-14) Blood Urea Nitrogen 10 mg/dL (7-20) Creatinine 0.6 mg/dL (0.6-1.0) Estimated GFR (Cockcroft-Gault) 107.6 BUN/Creatinine Ratio 17 (6-20) Glucose Level 132 mg/dL (70-99) Calcium Level 8.3 mg/dL (8.5-10.1) Magnesium Level 1.7 mg/dL (1.8-2.4) Total Bilirubin 0.6 mg/dL (0.2-1.0) Aspartate Amino Transf (AST/SGOT) 17 U/L (15-37) Alanine Aminotransferase (ALT/SGPT) 25 U/L (14-59) Alkaline Phosphatase 75 U/L (46-116) Troponin I Quantitative < 0.017 ng/mL (0.000-0.055) Total Protein 6.0 g/dL (6.4-8.2) Albumin 2.9 g/dL (3.4-5.0) Albumin/Globulin Ratio 0.9 (1.0-1.7) Medications Active Scripts Medications Dose Route/Sig Max Daily Dose Days Date Category Bactrim Ds Tablet (Sulfamethoxazole/Trimethoprim) 1 Each Tablet 1 Tab PO BID 08/19/17 Rx Proventil Hfa Inhaler (Albuterol Sulfate) 6.7 Gm Hfa.aer.ad 1-2 Puff IH PRN Q4HRS PRN 08/19/17 Rx Bactrim 400-80 Mg Tablet (Sulfamethoxazole/Trimethoprim) 1 Each Tablet 1 Tab PO BID 06/16/17 Rx [place] 5-325 Tablet (Acetaminophen/Hydrocodone Bitart) 1 Each Tablet 1-2 Tab PO PRN Q6HRS PRN 20 06/16/17 Rx Carafate (Sucralfate) 1 Gm/10 Ml Oral.susp 10 Ml PO TIDAC 06/16/17 Rx Hydrocodone-Apap 5-325 (Hydrocodone Bit/Acetaminophen) 1 Each Tablet 1-2 Tab PO PRN Q4-6HRS PRN 06/20/16 Rx Cyclobenzaprine Hcl 5 Mg Tablet 1 Tab PO TID PRN 06/20/16 Rx Impression . IMPRESSION: 1. Abnormal x-ray. 2. Pneumonia, suspect Gram negative/Gram positive. 3. Chronic obstructive pulmonary disease with acute exacerbation. 4. Long QT syndrome. 5. Status post automatic implantable cardioverter-defibrillator. 6. Morbid obesity. 7. Obstructive sleep apnea. Plan . WILL CONTINUE THE SAME HOME OK WITH ME HOME ON DOXY 1. Continue antibiotics. 2. Outpatient polysomnogram. 3. Follow Cardiology input. BASSEM MIR MD Dec 05, 2018 09:08
[2018-12-05] MEDS ORDERED: ONDANSETRON PF 4 MG/2 ML VIAL. IV PRN (09:15)
[2018-12-05 10:05] LABS: CALCIUM 8.8 mg/dL (8.5-10.1); CREATININE 0.6 mg/dL (0.6-1.0); GFR 107.6; POTASSIUM 3.7 mmol/L (3.5-5.1)
--- NOTE | 2018-12-05 10:27 | PDOC ---
CARDIO Progress Notes Date and Time Date of Service 12/05/2018 Time of Evaluation 1015 Subjective Subjective: No Chest Pain, No shortness of breath, No Palpitations Vitals Vitals Vital Signs Date Time Temp Pulse Resp B/P (MAP) Pulse Ox O2 Delivery O2 Flow Rate FiO2 12/05/18 08:50 70 167/84 12/05/18 07:56 98.7 20 94 Room Air 98.7 Weight Weight [ ] Input and Output Intake and Output Intake and Output 12/05/18 06:59 Intake Total 2240 ml Output Total 350 ml Balance 1890 ml Intake Oral 1280 ml IV Total 960 ml Output Urine Total 350 ml # Voids 3 Laboratory Labs Laboratory Tests Test 12/05/18 09:25 Sodium Level 140 mmol/L (136-145) Potassium Level 3.7 mmol/L (3.5-5.1) Chloride Level 104 mmol/L (98-107) Carbon Dioxide Level 24 mmol/L (21-32) Anion Gap 12 (6-14) Blood Urea Nitrogen 7 mg/dL (7-20) Creatinine 0.6 mg/dL (0.6-1.0) Estimated GFR (Cockcroft-Gault) 107.6 Glucose Level 151 mg/dL (70-99) Calcium Level 8.8 mg/dL (8.5-10.1) Magnesium Level 2.0 mg/dL (1.8-2.4) Microbiology Micro Microbiology 12/03/18 Blood Culture - Preliminary, Resulted NO GROWTH AFTER 1 DAY Physical Exam HEENT: Neck Supple W Full Motion Chest: Symmetric LUNGS: Clear to Auscultation Heart: S1S2, RRR (SR) Abdomen: Soft N/T Extremities: No Calf Tenderness Neurology: alert, oriented, follow commands Assessment Assessment 1. RLL CAP 2. Torsades: x1 episode treated via ATP per AICD. Intermittent episodes of brief multifocal PVCs. No further significant arrhythmias. 3. Long QT syndrome: EF and WM nml. QTc 491 4. AICD in situ: due to above. [employer]. DDDR mode, battery life 9 yrs. normal function. SR 5. Morbid obesity Recommendations 1. Maintain hydration. Goal Mg and K at 2.0 and 4.0 respectively, replace as warranted 2. Encouraged to follow up with Dr. Galeana next week. Nothing further at this time, Will follow along peripherally. 3. Continue BB 4. Avoid QT prolonging meds. 5. Antibiotic per PCP 6. Will need outpt [facility] w/u JONATHAN BALDWIN APRN Dec 05, 2018 10:27
[2018-12-05 11:00] VITALS: BP 132/69
[2018-12-05 14:29] VITALS: BP 132/81
[2018-12-05] MEDS ORDERED: POTASSIUM CHLORIDE 20 MEQ TABLET.ER. PO ONE (14:45)
--- NOTE | 2018-12-05 14:51 | PDOC ---
PROGRESS NOTES Chief Complaint Chief Complaint pneumonia sepsis, morbid obesity, BMI 51 Vtach, with hypomagnesia, nausea, poor PO intkae, History of Present Illness History of Present Illness cont current may DC soon if nausea improves cont to replace mag and K+ Vitals Vitals Vital Signs Date Time Temp Pulse Resp B/P (MAP) Pulse Ox O2 Delivery O2 Flow Rate FiO2 12/05/18 14:29 98.5 70 16 132/81 (98) 94 Room Air 98.5 Physical Exam General: Alert, Oriented X3, Cooperative, No acute distress Heart: Regular rate (SR), Other (distant heart sounds) Lungs: Crackles Abdomen: Normal bowel sounds (very obese), Soft Extremities: No cyanosis, No edema Skin: No breakdown, No significant lesion Labs LABS Laboratory Tests Test 12/05/18 09:25 Sodium Level 140 mmol/L (136-145) Potassium Level 3.7 mmol/L (3.5-5.1) Chloride Level 104 mmol/L (98-107) Carbon Dioxide Level 24 mmol/L (21-32) Anion Gap 12 (6-14) Blood Urea Nitrogen 7 mg/dL (7-20) Creatinine 0.6 mg/dL (0.6-1.0) Estimated GFR (Cockcroft-Gault) 107.6 Glucose Level 151 mg/dL (70-99) Calcium Level 8.8 mg/dL (8.5-10.1) Magnesium Level 2.0 mg/dL (1.8-2.4) Comment Review of Relevant I have reviewed the following items angie (where applicable) has been applied. Labs Laboratory Tests Test 12/03/18 19:52 12/03/18 20:00 12/03/18 22:03 12/04/18 02:35 Urine Collection Type Unknown Urine Color Yellow Urine Clarity Clear Urine pH 5.0 Urine Specific [place] 1.020 Urine Protein Negative mg/dL (NEG-TRACE) Urine Glucose (UA) Negative mg/dL (NEG) Urine Ketones (Stick) Negative mg/dL (NEG) Urine Blood Negative (NEG) Urine Nitrite Negative (NEG) Urine Bilirubin Negative (NEG) Urine Urobilinogen Dipstick 1.0 mg/dL (0.2 mg/dL) Urine Leukocyte Esterase Negative (NEG) Urine RBC 0 /HPF (0-2) Urine WBC 1-4 /HPF (0-4) Urine Squamous Epithelial Cells Few /LPF Urine Bacteria Few /HPF (0-FEW) Urine Mucus Mod /LPF White Blood Count 11.2 x10^3/uL (4.0-11.0) Red Blood Count 4.73 x10^6/uL (3.50-5.40) Hemoglobin 14.2 g/dL (12.0-15.5) Hematocrit 42.0 % (36.0-47.0) Mean Corpuscular Volume 89 fL (79-100) Mean Corpuscular Hemoglobin 30 pg (25-35) Mean Corpuscular Hemoglobin Concent 34 g/dL (31-37) Red Cell Distribution Width 13.2 % (11.5-14.5) Platelet Count 200 x10^3/uL (140-400) Neutrophils (%) (Auto) 80 % (31-73) Lymphocytes (%) (Auto) 17 % (24-48) Monocytes (%) (Auto) 3 % (0-9) Eosinophils (%) (Auto) 1 % (0-3) Basophils (%) (Auto) 1 % (0-3) Neutrophils # (Auto) 8.9 x10^3uL (1.8-7.7) Lymphocytes # (Auto) 1.8 x10^3/uL (1.0-4.8) Monocytes # (Auto) 0.3 x10^3/uL (0.0-1.1) Eosinophils # (Auto) 0.1 x10^3/uL (0.0-0.7) Basophils # (Auto) 0.1 x10^3/uL (0.0-0.2) Sodium Level 142 mmol/L (136-145) Potassium Level 4.2 mmol/L (3.5-5.1) Chloride Level 103 mmol/L (98-107) Carbon Dioxide Level 29 mmol/L (21-32) Anion Gap 10 (6-14) Blood Urea Nitrogen 14 mg/dL (7-20) Creatinine 0.6 mg/dL (0.6-1.0) Estimated GFR (Cockcroft-Gault) 107.6 BUN/Creatinine Ratio 23 (6-20) Glucose Level 121 mg/dL (70-99) Lactic Acid Level 0.8 mmol/L (0.4-2.0) Calcium Level 8.7 mg/dL (8.5-10.1) Magnesium Level 1.6 mg/dL (1.8-2.4) Total Bilirubin 0.4 mg/dL (0.2-1.0) Aspartate Amino Transf (AST/SGOT) 23 U/L (15-37) Alanine Aminotransferase (ALT/SGPT) 32 U/L (14-59) Alkaline Phosphatase 97 U/L (46-116) Troponin I Quantitative < 0.017 ng/mL (0.000-0.055) < 0.017 ng/mL (0.000-0.055) Total Protein 7.7 g/dL (6.4-8.2) Albumin 3.5 g/dL (3.4-5.0) Albumin/Globulin Ratio 0.8 (1.0-1.7) Lipase 111 U/L (73-393) Bedside Troponin I 0.00 ng/ml (<0.08) Test 12/04/18 05:20 12/05/18 09:25 White Blood Count 13.2 x10^3/uL (4.0-11.0) Red Blood Count 4.35 x10^6/uL (3.50-5.40) Hemoglobin 13.0 g/dL (12.0-15.5) Hematocrit 38.6 % (36.0-47.0) Mean Corpuscular Volume 89 fL (79-100) Mean Corpuscular Hemoglobin 30 pg (25-35) Mean Corpuscular Hemoglobin Concent 34 g/dL (31-37) Red Cell Distribution Width 12.7 % (11.5-14.5) Platelet Count 164 x10^3/uL (140-400) Neutrophils (%) (Auto) 84 % (31-73) Lymphocytes (%) (Auto) 10 % (24-48) Monocytes (%) (Auto) 6 % (0-9) Eosinophils (%) (Auto) 0 % (0-3) Basophils (%) (Auto) 0 % (0-3) Neutrophils # (Auto) 11.0 x10^3uL (1.8-7.7) Lymphocytes # (Auto) 1.4 x10^3/uL (1.0-4.8) Monocytes # (Auto) 0.8 x10^3/uL (0.0-1.1) Eosinophils # (Auto) 0.0 x10^3/uL (0.0-0.7) Basophils # (Auto) 0.0 x10^3/uL (0.0-0.2) Sodium Level 140 mmol/L (136-145) 140 mmol/L (136-145) Potassium Level 3.8 mmol/L (3.5-5.1) 3.7 mmol/L (3.5-5.1) Chloride Level 104 mmol/L (98-107) 104 mmol/L (98-107) Carbon Dioxide Level 27 mmol/L (21-32) 24 mmol/L (21-32) Anion Gap 9 (6-14) 12 (6-14) Blood Urea Nitrogen 10 mg/dL (7-20) 7 mg/dL (7-20) Creatinine 0.6 mg/dL (0.6-1.0) 0.6 mg/dL (0.6-1.0) Estimated GFR (Cockcroft-Gault) 107.6 107.6 BUN/Creatinine Ratio 17 (6-20) Glucose Level 132 mg/dL (70-99) 151 mg/dL (70-99) Calcium Level 8.3 mg/dL (8.5-10.1) 8.8 mg/dL (8.5-10.1) Magnesium Level 1.7 mg/dL (1.8-2.4) 2.0 mg/dL (1.8-2.4) Total Bilirubin 0.6 mg/dL (0.2-1.0) Aspartate Amino Transf (AST/SGOT) 17 U/L (15-37) Alanine Aminotransferase (ALT/SGPT) 25 U/L (14-59) Alkaline Phosphatase 75 U/L (46-116) Troponin I Quantitative < 0.017 ng/mL (0.000-0.055) Total Protein 6.0 g/dL (6.4-8.2) Albumin 2.9 g/dL (3.4-5.0) Albumin/Globulin Ratio 0.9 (1.0-1.7) Laboratory Tests Test 12/05/18 09:25 Sodium Level 140 mmol/L (136-145) Potassium Level 3.7 mmol/L (3.5-5.1) Chloride Level 104 mmol/L (98-107) Carbon Dioxide Level 24 mmol/L (21-32) Anion Gap 12 (6-14) Blood Urea Nitrogen 7 mg/dL (7-20) Creatinine 0.6 mg/dL (0.6-1.0) Estimated GFR (Cockcroft-Gault) 107.6 Glucose Level 151 mg/dL (70-99) Calcium Level 8.8 mg/dL (8.5-10.1) Magnesium Level 2.0 mg/dL (1.8-2.4) Microbiology 12/03/18 Blood Culture - Preliminary, Resulted NO GROWTH AFTER 1 DAY Medications Current Medications Ondansetron HCl (Zofran) 4 mg 1X ONCE IV ; Start 12/03/18 at 20:00; Stop 12/03/18 at 21:17; Status DC Sodium Chloride 1,000 ml @ 1,000 mls/hr 1X ONCE IV Last administered on 12/03/18at 20:00; Start 12/03/18 at 20:00; Stop 12/03/18 at 20:59; Status DC Lorazepam (Ativan Inj) 0.5 mg 1X ONCE IV ; Start 12/03/18 at 20:15; Stop 12/03/18 at 21:17; Status DC Amiodarone HCl (Cordarone) 150 mg STK-MED ONCE .ROUTE ; Start 12/03/18 at 21:16; Stop 12/03/18 at 21:17; Status DC Magnesium Sulfate/ Dextrose 100 ml @ 100 mls/hr 1X ONCE IV Last administered on 12/03/18at 21:30; Start 12/03/18 at 21:30; Stop 12/03/18 at 22:29; Status DC Sodium Chloride 1,000 ml @ 1,000 mls/hr 1X ONCE IV Last administered on at 21:26; Start 12/03/18 at 21:30; Stop 12/03/18 at 22:29; Status DC Amiodarone HCl (Cordarone) 150 mg 1X ONCE IVP Last administered on 12/03/18at 21:19; Start 12/03/18 at 21:30; Stop 12/03/18 at 21:34; Status DC Acetaminophen (Tylenol) 650 mg PRN Q6HRS PRN PO FEVER Last administered on 12/04/18at 00:34; Start 12/04/18 at 00:15; Stop 12/04/18 at 08:07; Status DC Ceftriaxone Sodium (Rocephin) 1 gm Q24H IVP ; Start 12/04/18 at 22:00 Acetaminophen (Tylenol) 650 mg PRN Q6HRS PRN PO FEVER > 100.5'F Last administer ed on 12/04/18at 08:20; Start 12/04/18 at 00:15 Ceftriaxone Sodium (Rocephin) 1 gm ONCE ONCE IVP Last administered on 12/04/18at 01:17; Start 12/04/18 at 00:45; Stop 12/04/18 at 00:46; Status DC Ceftriaxone Sodium (Rocephin) 1 gm ONCE ONCE IVP Last administered on 12/04/18at 01:24; Start 12/04/18 at 01:30; Stop 12/04/18 at 01:31; Status DC Lactobacillus Rhamnosus (Culturelle) 1 cap BID PO Last administered on 12/05/18at 08:49; Start 12/04/18 at 09:00 Potassium Chloride (Klor-Con) 20 meq 1X ONCE PO Last administered on 12/04/18at 10:26; Start 12/04/18 at 09:00; Stop 12/04/18 at 09:01; Status DC Magnesium Sulfate/ Dextrose 100 ml @ 25 mls/hr 1X ONCE IV Last administered on 12/04/18at 10:25; Start 12/04/18 at 09:00; Stop 12/04/18 at 12:59; Status DC Doxycycline Hyclate (Vibra-Tab) 100 mg BID PO Last administered on 12/05/18at 08:49; Start 12/04/18 at 09:00 Enoxaparin Sodium (Lovenox Per Pharmacy Prophylaxis Dosing) 1 each PRN DAILY PRN MC SEE COMMENTS; Start 12/04/18 at 09:00 Enoxaparin Sodium (Lovenox 40mg Syringe) 40 mg BID SQ Last administered on 12/05/18at 08:50; Start 12/04/18 at 09:00 Albuterol/ Ipratropium (Duoneb) 3 ml RTQID NEB Last administered on 12/05/18at 12:15; Start 12/04/18 at 09:00 Potassium Chloride/Dextrose/ Sod Cl 1,000 ml @ 80 mls/hr [id number] IV Last admi nistered on 12/05/18 03:02; Start 12/04/18 at 09:00 Cetirizine HCl (ZyrTEC) 10 mg DAILY PO Last administered on 12/05/18 08:53; Start 12/05/18 at 09:00 Lisinopril (Prinivil) 20 mg HS PO Last administered on 12/04/18 20:42; Start 12/04/18 at 21:00 Fish Oil (Fish Oil) 1,000 mg DAILY PO Last administered on 12/05/18 08:49; Start 12/05/18 at 09:00 Metoprolol Tartrate (Lopressor) 50 mg BID PO Last administered on 12/05/18 08:50; Start 12/04/18 at 21:00 Pantoprazole Sodium (Protonix) 40 mg DAILYAC PO Last administered on 12/05/18 06:22; Start 12/05/18 at 07:30 Ondansetron HCl (Zofran) 4 mg PRN Q8HRS PRN IV NAUSEA/VOMITING Last administere d on 12/05/18at 09:34; Start 12/05/18 at 09:15 Potassium Chloride (Klor-Con) 40 meq 1X ONCE PO ; Start 12/05/18 at 14:45; Stop 12/05/18 at 14:46; Status DC Magnesium Sulfate 50 ml @ 25 mls/hr 1X ONCE IV ; Start 12/05/18 at 15:00; Stop 12/05/18 at 16:59; Status UNV Active Scripts Active Proventil Hfa Inhaler (Albuterol Sulfate) 6.7 Gm Hfa.aer.ad 1-2 Puff IH PRN Q4HRS PRN Reported Prilosec Otc (Omeprazole Magnesium) 20 Mg Tablet.dr 1 Tab PO DAILY Zyrtec (Cetirizine Hcl) 10 Mg Tablet 1 Tab PO DAILY Fish Oil 1,000 Mg Capsule ([place]-3 Fatty Acids/Fish Oil) 1 Each Capsule 1 Each PO DAILY Lisinopril 20 Mg Tablet 20 Mg PO HS Nadolol 40 Mg Tablet 1 Tab PO DAILY Vitals/I & O Vital Sign - Last 24 Hours 12/04/18 12/04/18 12/04/18 12/04/18 17:01 17:24 19:58 19:59 Temp 99.4 99.1 99.4 99.1 Pulse 70 90 Resp 18 18 B/P (MAP) 157/85 (109) 138/94 (109) Pulse Ox 96 95 O2 Delivery Room Air Room Air Room Air Room Air 12/04/18 12/04/18 12/04/18 12/05/18 20:00 20:42 23:01 02:27 Temp 99.3 98.5 99.3 98.5 Pulse 70 70 71 Resp 16 16 B/P (MAP) 144/84 127/74 (91) 120/77 (91) Pulse Ox 94 93 O2 Delivery Room Air Room Air Room Air 12/05/18 12/05/18 12/05/18 12/05/18 07:32 07:56 08:00 08:50 Temp 98.7 98.7 Pulse 70 70 Resp 20 B/P (MAP) 167/84 (111) 167/84 Pulse Ox 95 94 O2 Delivery Room Air Room Air Room Air 12/05/18 12/05/18 12/05/18 11:00 12:16 14:29 Temp 98.5 98.5 98.5 98.5 Pulse 70 70 Resp 24 16 B/P (MAP) 132/69 (90) 132/81 (98) Pulse Ox 97 94 O2 Delivery Room Air Room Air Room Air Intake and Output 12/04/18 12/04/18 12/05/18 15:00 23:00 07:00 Intake Total 240 ml 400 ml 1600 ml Output Total 350 ml Balance -110 ml 400 ml 1600 ml LATIA BAÑUELOS MD Dec 05, 2018 14:51
[2018-12-05] MEDS ORDERED: MAGNESIUM SULFATE 2GM 50 ML IV ONE (15:00)
[2018-12-05] MEDS ORDERED: DOXY100T PO (18:28)
[2018-12-05 19:10] VITALS: BP 112/70
--- NOTE | 2018-12-05 20:39 | NUR ---
Pt. discharged home @ approx 1952 accompanied by daughter. Discontinued Right hand Iv, no complications. Escorted pt to car by wheelchair. All belongings returned to pt. Discharge paperwork signed and given to patient.
== END 2018-12-05 19:53 | disposition home or self-care (01) | DRG 871 ==
LOC: ER 19:43 → 1 WEST ICU 21:30 → 2 NORTH 12-04 16:31
PROVIDERS: ADMIT Internal Medicine; ATTEND Internal Medicine
PROC: 4B02XTZ Measurement of Cardiac Defibrillator, External Approach (ICD-10-PCS; principal; 2018-12-03)
DX: A41.9 Sepsis, unspecified organism (principal); J18.1 Lobar pneumonia, unspecified organism; Z68.43 Body mass index [BMI] 50.0-59.9, adult; J44.0 Chronic obstructive pulmonary disease with (acute) lower respiratory infection; J44.1 Chronic obstructive pulmonary disease with (acute) exacerbation; E11.9 Type 2 diabetes mellitus without complications; E66.01 Morbid (severe) obesity due to excess calories; E83.42 Hypomagnesemia; G47.33 Obstructive sleep apnea (adult) (pediatric); Z95.810 Presence of automatic (implantable) cardiac defibrillator; Z87.891 Personal history of nicotine dependence; Z82.5 Family history of asthma and other chronic lower respiratory diseases; Z82.49 Family history of ischemic heart disease and other diseases of the circulatory system; K21.9 Gastro-esophageal reflux disease without esophagitis; I10 Essential (primary) hypertension; Z90.710 Acquired absence of both cervix and uterus; J30.9 Allergic rhinitis, unspecified; M19.90 Unspecified osteoarthritis, unspecified site; Z88.0 Allergy status to penicillin; I45.81 Long QT syndrome
CPT/HCPCS: 36415; 71045; 80048; 80053; 81001; 83605; 83690; 83735; 84484; 85025; 87040; 93005; 93306; 94640; 94760; 96361; 96365; 96375; J0282; J0696; J1650; J2405; J3475; J7030; J7620; 99285-25